=== PATIENT | female | born 1950 | race Caucasian/White ===

== ENCOUNTER → 2017-11-15 | Outpatient (CLI) | payer MEDICARE, BC ==
--- NOTE | 2017-11-18 10:30 | MM ---
Reason for exam: screening (asymptomatic). Last mammogram was performed 1 year and 3 months ago. History: Patient is postmenopausal. Took estrogen for 6 months beginning at age 57. Physical Findings: A clinical breast exam by your physician is recommended on an annual basis and results should be correlated with mammographic findings. MG 3D Screening Mammo W/Cad Bilateral CC and MLO view(s) were taken. Prior study comparison: August 09, 2016, right breast MG work up mamm w CAD RT. August 01, 2016, bilateral MG screening mammo w CAD. There are scattered fibroglandular densities. There is chronic nodularity in the right upper outer quadrant anteriorly. Multiple benign lucent centered calcifications redemonstrated on both sides. No significant changes when compared with prior studies. ASSESSMENT: Benign, BI-RAD 2 RECOMMENDATION: Routine screening mammogram of both breasts in 1 year.
== END | disposition home or self-care (01) ==
LOC: RADMAMWWP 09:26
PROVIDERS: ATTEND Family Medicine
DX: Z12.31 Encounter for screening mammogram for malignant neoplasm of breast (principal)
CPT/HCPCS: 77063; 77067

== ENCOUNTER → 2019-06-17 | Outpatient (CLI) | payer MEDICARE, BC ==
--- NOTE | 2019-06-19 12:27 | MM ---
Reason for exam: screening (asymptomatic). Last mammogram was performed 1 year and 7 months ago. History: Patient is postmenopausal. Took estrogen for 6 months beginning at age 57. Physical Findings: A clinical breast exam by your physician is recommended on an annual basis and results should be correlated with mammographic findings. MG 3D Screening Mammo W/Cad Bilateral CC and MLO view(s) were taken. Prior study comparison: November 15, 2017, bilateral MG 3d screening mammo w/cad. August 09, 2016, right breast MG work up mamm w CAD RT. Diffuse dermal calcifications redemonstrated. No significant changes when compared with prior studies. ASSESSMENT: Benign, BI-RAD 2 RECOMMENDATION: Routine screening mammogram of both breasts in 1 year.
== END | disposition home or self-care (01) ==
LOC: RADMAMWWP 13:11
PROVIDERS: ATTEND Family Medicine
DX: Z12.31 Encounter for screening mammogram for malignant neoplasm of breast (principal)
CPT/HCPCS: 77063; 77067

== ENCOUNTER 2020-02-05 10:25 | Day surgery (SDC) | payer BC, MEDICARE ==
[2020-02-03 10:50] VITALS: BMI 25.1
[~2020-02-05 10:25] MED LIST: LACTATED RINGERS 1,000 ML IV SCH; SODIUM CHLORIDE 0.9% 1,000 ML IV SCH
[2020-02-05 11:15] LABS: African American GFR (CKD) >90 (>60 ml/min/1.73 sqM); Anion Gap 6 mmol/L; Blood Urea Nitrogen 11 mg/dL (7-17); Calcium 9.1 mg/dL (8.4-10.2); Carbon Dioxide 24 mmol/L (22-30); Chloride 110 mmol/L (98-107); Glucose 91 mg/dL (74-99); Non-African American GFR(CKD) >90 (>60 ml/min/1.73 sqM); Potassium 4.5 mmol/L (3.5-5.1); Sodium 140 mmol/L (137-145)
[2020-02-05] MEDS ORDERED: MIDAZOLAM 2 MG/2 ML VIAL IV ONE (11:16)
[2020-02-05] MEDS ORDERED: BENZOCAINE SPRAY 1 CAN TOPICAL PRN (11:16)
[2020-02-05] MEDS ORDERED: fentaNYL (PF) 50 MCG/ML 2 ML AMP IVP ONE (11:16)
[2020-02-05] MEDS ORDERED: PROPOFOL 10 MG/ML 20 ML VIAL IV ONE (11:26)
[2020-02-05] MEDS ORDERED: LIDOCAINE 1% INJ 10MG/ML (20 ML MDV) ONE (11:26)
[2020-02-05] MEDS: BENZOCAINE SPRAY 1 CAN MUCOUS MEM ONE ×2 (11:30→11:34)
[2020-02-05 12:05] VITALS: RESP 16; TEMP 97.2
[2020-02-05] MEDS ORDERED: SODIUM CHLORIDE 0.9% 1,000 ML IV SCH (12:15)
[2020-02-05 13:37] VITALS: BP 168/78; PULSE 70
--- NOTE | 2020-02-11 09:32 | P.TEE ---
Date of Procedure: 02/05/20 Preoperative Diagnosis: Atrial fibrillation Postoperative Diagnosis: The same Procedure(s) Performed: JENNIFER cardioversion Description of Procedure(s): INDICATION: To rule out left atrial clot before cardioversion CONSENT:. Informed verbal consent is obtained from the patient PROCEDURE:. TE followed by cardioversion FINDINGS: Patient was brought to the lab in a fasting state. Patient is prepped and draped in the usual fashion. Department of anesthesia provided anesthesia with ibuprofen for. A lubricated Omni probe was introduced in the oropharynx and were advanced into the esophagus. Multiple views were obtained. Patient tolerated the procedure well. Color, pulsed and continuous wave Dopplers were performed. Saline contrast bubble injection is performed. Patient tolerated the procedure well. The aortic valve is tricuspid. The mitral valve appeared within normal with trace regurgitation. Left atrial appendage free of any clot. No evidence of interatrial septal defect or PFO. Left atrium is enlarged. Left ventricle function appeared to be fair. The aorta showed minimal plaque IMPRESSION:. No clot in the left atrial appendage PLAN: Proceed with cardioversion
--- NOTE | 2020-02-11 09:34 | P.PCN ---
Date of Procedure: 02/05/20 Preoperative Diagnosis: Atrial fibrillation Postoperative Diagnosis: Conversion to sinus rhythm Procedure(s) Performed: Cardioversion Description of Procedure: This patient is evaluated by JENNIFER. There is no clot in left atrial appendage. Anterior posterior paddles were applied. Patient was sedated by department of anesthesia. A single shock of 200 J was applied. Patient converted to sinus rhythm. No immediate complications. Final impression: #1. Successful cardioversion #2 patient will continue current medical therapy and be discharged home. Follow-up in the office in one week
== END 2020-02-05 13:37 | disposition home or self-care (01) ==
LOC: CATHCVL 10:25
PROVIDERS: ATTEND Internal Medicine Cardiovascular Disease
DX: I48.91 Unspecified atrial fibrillation (principal); I08.0 Rheumatic disorders of both mitral and aortic valves; I10 Essential (primary) hypertension; J44.9 Chronic obstructive pulmonary disease, unspecified; E07.9 Disorder of thyroid, unspecified; F17.210 Nicotine dependence, cigarettes, uncomplicated; Z79.82 Long term (current) use of aspirin; Z79.51 Long term (current) use of inhaled steroids; Z79.899 Other long term (current) drug therapy; Z79.890 Hormone replacement therapy; Z79.01 Long term (current) use of anticoagulants; Z79.1 Long term (current) use of non-steroidal anti-inflammatories (NSAID); Z91.048 Other nonmedicinal substance allergy status; Z86.69 Personal history of other diseases of the nervous system and sense organs
CPT/HCPCS: 93312; 93320; 93325; 92960; 80048; J2001; J2704

== ENCOUNTER 2020-11-26 21:03 | Emergency (ER) | payer MEDICARE ==
[2020-11-26 21:12] VITALS: RESP 18
[2020-11-26 21:15] VITALS: TEMP 98
--- NOTE | 2020-11-26 21:32 | ED ---
Fall HPI - General Chief Complaint: Fall Stated Complaint: ETOH, Fall Time Seen by Provider: 11/26/20 21:22 Source: patient, EMS Mode of arrival: EMS - History of Present Illness MD Complaint: fall -: minutes(s) Fall From: standing When Fall Occurred: 1 hour [employer] Fall Witnessed: yes, by family Place Fall Occurred: home Loss of Consciousness: none Prolonged Down Time?: no Location: head Location - Extremities: Right: Forearm Severity scale (1-10): 0 Context: alcohol use Associated Symptoms: denies - Related Data Home Medications Medication Instructions Recorded Confirmed Levothyroxine Sodium [Synthroid] 88 mcg PO QAM 12/14/14 02/05/20 Montelukast [Singulair] 10 mg PO DAILY@199912/14/14 02/03/20 Albuterol Sulfate [Proair Hfa] 2 puff INHALATION BID PRN 03/31/16 02/05/20 Acetaminophen [Tylenol] 325 - 650 mg PO DIRECTED PRN 02/03/20 02/05/20 Cholecalciferol [Vitamin D3 (25 5,000 unit PO DAILY 02/03/20 02/05/20 Mcg = 1000 Iu)] Fluticasone Propion/Salmeterol 1 inhalation PO DAILY PRN 02/03/20 02/05/20 [Wixela 500-50 Inhub] Metoprolol Succinate (ER) [Toprol 50 mg PO DAILY 02/03/20 02/05/20 XL] Rivaroxaban [Xarelto] 20 mg PO HS 02/03/20 02/05/20 Allergies Allergy/AdvReac Type Severity Reaction Status Date / Time Iodinated Contrast Media Allergy Rash/Hives Verified 02/05/20 10:41 [Iodinated Contrast Media - IV Dye] Review of Systems ROS Statement: Those systems with pertinent positive or pertinent negative responses have been documented in the HPI. ROS Other: All systems not noted in ROS Statement are negative. Constitutional: Denies: weakness Eyes: Denies: eye pain, vision change ENT: Denies: ear pain, epistaxis Respiratory: Denies: cough, dyspnea Cardiovascular: Denies: chest pain, palpitations, orthopnea Gastrointestinal: Denies: abdominal pain, vomiting, diarrhea Genitourinary: Denies: dysuria, hematuria Musculoskeletal: Denies: back pain Neurological: Denies: headache, weakness, numbness Past Medical History Past Medical History: Atrial Fibrillation, Asthma, Hypertension, Thyroid Disorder Additional Past Medical History / Comment(s): Seasonal asthma. Hx vertigo. History of Any Multi-Drug Resistant Organisms: None Reported Past Surgical History: Bariatric Surgery, Orthopedic Surgery Additional Past Surgical History / Comment(s): Gastric sleeve 2004, Bakers cyst removed from Rt knee by Dr Reinoso. Rt Knee surg. Rt Shoulder. ORIF Lt Hip. Past Anesthesia/Blood Transfusion Reactions: Previous Problems w/ Anesthesia Additional Past Anesthesia/Blood Transfusion Reaction / Comment(s): Awake during knee surgery. Past Psychological History: No Psychological Hx Reported Smoking Status: Current every day smoker Past Alcohol Use History: Daily Past Drug Use History: None Reported - Past Family History Mother History Unknown: Yes Family Medical History: Unable to Obtain General Exam General appearance: alert, in no apparent distress Head exam: Present: atraumatic, normocephalic Eye exam: Present: normal appearance, PERRL, EOMI. Absent: scleral icterus, conjunctival injection Neck exam: Present: normal inspection, full ROM. Absent: tenderness Respiratory exam: Present: normal lung sounds bilaterally. Absent: respiratory distress, wheezes, rales, rhonchi, stridor Cardiovascular Exam: Present: regular rate, normal rhythm, normal heart sounds. Absent: systolic murmur, diastolic murmur, rubs, gallop GI/Abdominal exam: Present: soft. Absent: distended, tenderness, guarding, rebound, rigid Extremities exam: Present: full ROM. Absent: tenderness Back exam: Present: normal inspection. Absent: vertebral tenderness Neurological exam: Present: alert. Absent: motor sensory deficit Skin exam: Present: warm, dry, normal color. Absent: rash Course Vital Signs 11/26/20 11/26/20 21:05 22:44 Temperature 98.0 F Pulse Rate 113 H 90 Respiratory 18 18 Rate Blood Pressure 169/95 153/84 O2 Sat by Pulse 95 96 Oximetry Disposition Clinical Impression: Fall, Head injury Disposition: HOME SELF-CARE Condition: Fair Instructions (If sedation given, give patient instructions): Contusion in Ad ults (ED) Is patient prescribed a controlled substance at d/c from ED?: No Referrals: Kirby Mejia DO [Primary Care Provider] - 1-2 days
--- NOTE | 2020-11-26 22:13 | CT ---
EXAMINATION TYPE: CT brain loriine karin con DATE OF EXAM: 11/26/2020 COMPARISON: 04/13/2011. HISTORY: Fall. Frontal injury. CT DLP: 1402 mGycm Automated exposure control for dose reduction was used. TECHNIQUE: CT scan of the head and cervical spine are performed without contrast. FINDINGS: There is no acute intracranial hemorrhage, mass effect, or midline shift identified. The ventricles and sulci are within normal limits in size. There is moderate parenchymal volume loss and mild white matter disease. 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 The globes are intact and the vi sualized sinuses are clear. Cervical spine is visualized in its entirety from C1 through upper thoracic levels and demonstrates s atisfactory alignment without evidence of acute fracture or dislocation. Prevertebral soft tissue ap pears within normal limits. The C1-C2 articulation is unremarkable. The patient is visualized lung apices demonstrate moderate hazy opacity with interseptal thickening. There is multilevel mild to mod erate cervical spondylosis. IMPRESSION: 1. There is no acute fracture or dislocation evident in the cervical spine. 2. No acute intracranial hemorrhage, mass effect, or midline shift is seen. 3. Partially imaged upper lobe opacities with interseptal thickening, suggestive of interstitial ondina a. Superimposed infiltrates are not excluded.
[2020-11-26 22:45] VITALS: BP 153/84; PULSE 90
== END 2020-11-26 23:22 | disposition home or self-care (01) ==
LOC: EC 21:03
DX: S09.90XA Unspecified injury of head, initial encounter (principal); I10 Essential (primary) hypertension; F17.200 Nicotine dependence, unspecified, uncomplicated; I48.91 Unspecified atrial fibrillation; Z79.899 Other long term (current) drug therapy; W18.30XA Fall on same level, unspecified, initial encounter; J45.909 Unspecified asthma, uncomplicated
CPT/HCPCS: 70450; 72125; 99284

== ENCOUNTER → 2021-05-23 | Outpatient (CLI) | payer MEDICARE ==
--- NOTE | 2021-05-23 14:05 | CT ---
EXAMINATION TYPE: CT brain wo con DATE OF EXAM: 05/23/2021 COMPARISON: 11/26/2020 INDICATION: Gait abnormality. DLP: 1195 mGycm, Automated exposure control for dose reduction was used. CONTRAST: None CT of the brain is performed utilizing 3 mm thick sections through the posterior fossa and 3 mm thick sections through the remaining calvarium. Study is performed within 24 hours of arrival to the hosp ital. No abnormal hyperdensity is present to suggest an acute intracranial hemorrhage. No mass lesion is evident. No acute infarcts are evident. There is hypodensity within the inferior lateral right frontal lobe ma y be posttraumatic change. This was present previously. Ventricles and sulci are prominent for the patient age. Paranasal sinuses and mastoid air cells within the [id number] are clear. IMPRESSIONS: 1. No acute intracranial process.
== END | disposition home or self-care (01) ==
LOC: RADCTMAIN 13:11
PROVIDERS: ATTEND Family Medicine
DX: R26.89 Other abnormalities of gait and mobility (principal)
CPT/HCPCS: 70450

== ENCOUNTER 2021-07-28 07:17 | Day surgery (SDC) | payer MEDICARE ==
[2021-07-26 11:21] VITALS: BMI 24.7
[~2021-07-28 07:17] MED LIST changes: -SODIUM CHLORIDE 0.9% 1,000 ML IV SCH
[2021-07-28 07:55] VITALS: RESP 16; TEMP 97.7
[2021-07-28] MEDS ORDERED: PROPOFOL 10 MG/ML 20 ML VIAL IV ONE (08:33)
--- NOTE | 2021-07-28 08:49 | P.PCN ---
Date of Procedure: 07/28/21 Procedure(s) Performed: BRIEF HISTORY: Patient is a 71-year-old pleasant white female scheduled for an elective colonoscopy as a part of screening for colorectal neoplasia. PROCEDURE PERFORMED: Colonoscopy with snare polypectomy. PREOPERATIVE DIAGNOSIS: Screening for colon cancer. IV sedation per Anesthesia. PROCEDURE: After informed consent was obtained, the patient, was brought into the endoscopy unit. IV sedation was administered by Anesthesia under continuous monitoring. Digital rectal examination was normal. Initially the Olympus CF-160 flexible video colonoscope was then inserted in the rectum, gradually advanced into the cecum without any difficulty. Careful examination was performed as the scope was gradually being withdrawn. Ileocecal valve and the appendiceal orifice were visualized and appeared normal. Prep was excellent. Mucosa of the cecum, appeared normal. In the ascending colon there was a 7-8 mm sessile polyp removed by snare polypectomy. In the transverse colon there was a 5 mm and 1 cm broad-based polyps removed by snare polypectomy. Rest of the ascending colon, transverse colon, descending colon, sigmoid colon, and rectum appeared normal. Scattered sigmoid diverticulosis seen. Retroflexion was performed in the rectum and no lesions were seen. The patient tolerated the procedure well. IMPRESSION: 7-8 mm sessile ascending colon polyp status post polypectomy 5 mm and 1 cm broad-based transverse colon polyp status post snare polypectomy Scattered sigmoid diverticulosis RECOMMENDATIONS: Findings of this examination were discussed with the patient as well as a family. She was advised to follow with the biopsy results. If the biopsy reveals adenoma she can have a repeat colonoscopy in 3 years.
[2021-07-28 08:55] VITALS: PULSE 88
[2021-07-28 09:11] VITALS: BP 148/71
== END 2021-07-28 09:37 | disposition home or self-care (01) ==
LOC: ORWHC2ENDO 07:17
PROVIDERS: ATTEND Internal Medicine Gastroenterology
DX: Z12.11 Encounter for screening for malignant neoplasm of colon (principal); K57.30 Diverticulosis of large intestine without perforation or abscess without bleeding; I48.91 Unspecified atrial fibrillation; I10 Essential (primary) hypertension; J45.909 Unspecified asthma, uncomplicated; F17.200 Nicotine dependence, unspecified, uncomplicated; M19.90 Unspecified osteoarthritis, unspecified site; Z79.01 Long term (current) use of anticoagulants; Z79.890 Hormone replacement therapy; Z79.899 Other long term (current) drug therapy
CPT/HCPCS: 88305; 45385; J2704

== ENCOUNTER → 2021-09-04 | Outpatient (CLI) | payer MEDICARE ==
--- NOTE | 2021-09-05 05:38 | MR ---
EXAMINATION TYPE: MR cervical spine wo con DATE OF EXAM: 09/04/2021 COMPARISON: None HISTORY: Imbalance, ataxia, hyper reflexia. Multiplanar multiecho imaging of the cervical spine without contrast. FINDINGS: The cervical vertebra have normal alignment. There is degenerative disc space narrowing throughout th e cervical spine. There is no compression fracture. There is mild posterior disc bulging from C3 to C 6. At C5-6 there is more noticeable bulging. There is some facet arthropathy. The spinal canal is arian rowed to 6 mm at C5-6. The cervical spinal cord shows no edema. The brainstem appears intact. Cerebel lum appears intact. I see no focal bone destruction. IMPRESSION: Multilevel spondylotic changes. C5-6 spinal stenosis. No fracture.
== END | disposition home or self-care (01) ==
LOC: RADMRIMAIN 19:28
PROVIDERS: ATTEND Psychiatry & Neurology Neurology
DX: M48.02 Spinal stenosis, cervical region (principal); M47.812 Spondylosis without myelopathy or radiculopathy, cervical region
CPT/HCPCS: 72141

== ENCOUNTER → 2021-09-20 | Outpatient (CLI) | payer MEDICARE ==
--- NOTE | 2021-09-22 08:13 | MM ---
Reason for exam: screening (asymptomatic). Last mammogram was performed 2 years and 3 months ago. History: Patient is postmenopausal. Took estrogen for 6 months beginning at age 57. Physical Findings: A clinical breast exam by your physician is recommended on an annual basis and results should be correlated with mammographic findings. MG 3D Screening Mammo W/Cad Bilateral CC and MLO view(s) were taken. Prior study comparison: June 17, 2019, bilateral MG 3d screening mammo w/cad. November 15, 2017, bilateral MG 3d screening mammo w/cad. There are scattered fibroglandular densities. Diffuse benign round and punctate calcifications. Lateral left subareolar nodularity is more defined. ASSESSMENT: Incomplete: need additional imaging evaluation, BI-RAD 0 RECOMMENDATION: Special view mammogram of the left breast. (3D) If lesion persists on supplemental views, image directed ultrasound is recommended. [facility] will attempt to contact patient to return for supplemental views and ultrasound if indicated.
== END | disposition home or self-care (01) ==
LOC: RADMAMWWP 13:02
PROVIDERS: ATTEND Family Medicine
DX: Z12.31 Encounter for screening mammogram for malignant neoplasm of breast (principal); Z78.0 Asymptomatic menopausal state
CPT/HCPCS: 77063; 77067

== ENCOUNTER → 2021-09-27 | Outpatient (CLI) | payer MEDICARE ==
--- NOTE | 2021-09-28 08:35 | MM ---
Reason for exam: additional evaluation requested from abnormal screening. Last mammogram was performed less than 1 month ago. History: Patient is postmenopausal. Took estrogen for 6 months beginning at age 57. Physical Findings: Nurse did not find any significant physical abnormalities on exam. MG 3D Work Up W/Cad LT Spot compression CC, spot compression MLO, and LM view(s) were taken of the left breast. Prior study comparison: September 20, 2021, bilateral MG 3d screening mammo w/cad. June 17, 2019, bilateral MG 3d screening mammo w/cad. The breast tissue is heterogeneously dense. This may lower the sensitivity of mammography. There is no discrete abnormality including area of concern. No significant new findings when compared with previous films. These results were verbally communicated with the patient and result sheet given to the patient on 09/27/21. ASSESSMENT: Negative, BI-RAD 1 RECOMMENDATION: Return to routine screening mammogram schedule for both breasts.
== END | disposition home or self-care (01) ==
LOC: RADMAMWWP 14:52
PROVIDERS: ATTEND Family Medicine
DX: R92.8 Other abnormal and inconclusive findings on diagnostic imaging of breast (principal); Z78.0 Asymptomatic menopausal state
CPT/HCPCS: 77065; G0279; 77061

== ENCOUNTER → 2021-10-04 | Outpatient (CLI) | payer MEDICARE ==
--- NOTE | 2021-10-04 17:09 | XR ---
EXAMINATION TYPE: XR chest 2V DATE OF EXAM: 10/04/2021 COMPARISON: 03/31/2016 HISTORY: Hip fracture TECHNIQUE: 2 views FINDINGS: Heart is normal. Lungs are clear of consolidation. There are no hilar masses. Costophrenic angles are clear. Bony thorax is intact. IMPRESSION: No active cardiopulmonary disease. No change.
== END | disposition home or self-care (01) ==
LOC: RADXRMAIN 16:38
PROVIDERS: ATTEND Orthopaedic Surgery Orthopaedic Surgery of the Spine
DX: Z01.818 Encounter for other preprocedural examination (principal)
CPT/HCPCS: 71046

== ENCOUNTER 2021-10-18 06:48 | Day surgery (SDC) | payer MEDICARE ==
[2021-10-17 10:36] VITALS: BMI 25.1
[~2021-10-18 06:48] MED LIST changes: +DEXAMETHASONE SOD PHOSPHATE 4 MG/ML 1 ML VIAL IV ONE; +HYDROmorphone 0.5 MG/0.5 ML SYRINGE IVP PRN; +ONDANSETRON 4 MG/2 ML VIAL IVP ONE; +ceFAZolin 1,000 MG in SODIUM CHLORIDE 0.9% IRRIGATIO 1,000 ML IRRIGATION PRN
[2021-10-18 07:20] VITALS: RESP 16
[2021-10-18] MEDS ORDERED: VASOPRESSIN 20 UNIT/ML 1 ML VIAL ONE (08:00)
[2021-10-18] MEDS ORDERED: ROCURONIUM 10 MG/ML (5 ML VIAL) IV ONE (08:00)
[2021-10-18] MEDS ORDERED: MIDAZOLAM 2 MG/2 ML VIAL ONE (08:00)
[2021-10-18] MEDS ORDERED: NEOSTIGMINE 1 MG/ML 10 ML VIAL ONE (08:00)
[2021-10-18] MEDS ORDERED: PHENYLEPHRINE-0.9% NACL SYG 1,000 MCG/10 ML SYRINGE ONE (08:00)
[2021-10-18] MEDS ORDERED: PROPOFOL 10 MG/ML 20 ML VIAL IV ONE (08:00)
[2021-10-18] MEDS ORDERED: fentaNYL (PF) 50 MCG/ML 2 ML AMP ONE (08:00)
[2021-10-18] MEDS ORDERED: SUCCINYLCHOLINE CHLORIDE 100 MG/5 ML SYR IV ONE (08:00)
[2021-10-18] MEDS ORDERED: GLYCOPYRROLATE 0.2 MG/ML 2 ML VIAL ONE (08:00)
[2021-10-18] MEDS ORDERED: LIDOCAINE 1% INJ 10MG/ML (20 ML MDV) ONE (08:00)
[2021-10-18] MEDS ORDERED: THROMBIN (BOVINE) 5,000 UNIT VIAL TOPICAL ONE (08:28)
[2021-10-18] MEDS ORDERED: GELATIN SPONGE,ABSORB (SMALL) 1 EACH SPONGE TOPICAL ONE (08:29)
[2021-10-18] MEDS ORDERED: BUPIVACAIN-EPI 0.25%-1:200,000 30 ML VIAL SQ ONE ×2 (08:30→08:34)
[2021-10-18] MEDS ORDERED: LACTATED RINGERS 1,000 ML IV ONE (09:00)
--- NOTE | 2021-10-18 09:11 | XR ---
EXAMINATION TYPE: XR cervical spine 1V DATE OF EXAM: 10/18/2021 COMPARISON: NONE HISTORY: ANTERIOR CERVICAL FUSION/DISKECTOMY TECHNIQUE: Crosstable lateral view cervical spine FINDINGS: Localization device at the anterior C5-6 level. IMPRESSION: As above
[2021-10-18] MEDS ORDERED: CYCLOBENZAPRINE 5 MG TAB PO PRN (09:37)
[2021-10-18] MEDS ORDERED: ONDANSETRON 4 MG/2 ML VIAL IVP PRN (09:37)
[2021-10-18] MEDS ORDERED: BENZOCAINE/MENTHOL LOZENG 1 EACH LOZENGE MUCOUS MEM PRN (09:37)
[2021-10-18] MEDS ORDERED: HYDROcodone/APAP 5-325MG 1 EACH TAB PO PRN (09:37)
[2021-10-18] MEDS ORDERED: HYDROmorphone 1 MG/ML 1 ML SYRINGE IVP PRN (09:37)
[2021-10-18] MEDS ORDERED: NON FORMULARY DRUG (Fluticasone Propion/Salmeterol [Wixela 500-50 Inhub] 1 EACH Blst.W.Dev PO PRN (09:40)
[2021-10-18] MEDS ORDERED: NON FORMULARY DRUG (Acetaminophen [Tylenol] 325 MG Capsule) PO PRN (09:40)
[2021-10-18] MEDS ORDERED: ALBUTEROL HFA INHALER INHALATION PRN (09:40)
[2021-10-18] MEDS ORDERED: SODIUM CHLORIDE 0.9% 1,000 ML IV SCH (09:45)
--- NOTE | 2021-10-18 09:45 | P.OP ---
Date of Procedure: 10/18/21 Preoperative Diagnosis: Cervical myelopathy, severe cervical stenosis C5 6, herniated nucleus pulposis C5 6, upper extremity radiculopathy, upper tremor weakness Postoperative Diagnosis: Same Anesthesia: GETA Pathology: none sent Condition: stable Disposition: PACU Description of Procedure: BRIEF OPERATIVE NOTE Preoperative Diagnosis:Cervical myelopathy, severe cervical stenosis C5 6, herniated nucleus pulposis C5 6, upper extremity radiculopathy, upper tremor weakness Postoperative Diagnosis:Cervical myelopathy, severe cervical stenosis C5 6, herniated nucleus pulposis C5 6, upper extremity radiculopathy, upper tremor weakness Procedure: Anterior cervical decompression with discectomy and fusion C5 6 Placement of interbody graft C5 6 Application of anterior cervical plate C5 6 Surgeon: Dr. Carty Electric Meter Tester Helper: Umberto Montes is present throughout the entire the case persistence during positioning, dissection, exposure, visualization, and all crucial elements of the case as well as closure. Anesthesia: General anesthesia Estimated blood loss: Approximately 50 mL Complications: None apparent Components implanted: K2M [place] anterior cervical plate system with the VIkosinterbody allograft bone graft Disposition: To recovery room in good stable condition. OPERATIVE INDICATIONS The patient has had long-standing issues in their neck and upper extremities. She isn't having worsening troubles in her upper extremity is with dexterity in her balance. The patient has been through conservative treatment. She is found have severe stenosis C5 6 with disc herniation which equated with her early myelopathy signs and her neuropathy neck pain. We discussed various treatment options including surgery, and the patient wishes to proceed with surgery We discussed the risk, patient's alternatives and benefits of surgery including but not limited to, risk of bleeding risk of infection, risk of need for further surgery, risk of decreased, loss of motion, muscle function, malunion nonunion, hardware failure, nerve damage, paralysis, heart attack, and . OPERATIVE SUMMARY After discussing all the risks, patient alternatives and benefits at length, the patient elected to proceed with surgical intervention, signed informed consent, and presented for their procedure. The patient was seen and examined in the preoperative holding area and the surgical site was marked. The patient was given antibiotics and brought to the operating room. The patient was positioned on the operating room table in a supine position being careful to pad any bony prominences and pressure points. The patient was sedated and intubated by anesthesia in standard fashion. Once the airway and C- spine were stabilized the patient's arms were padded and tucked at her side, with her shoulders gently taped. The head was placed in a donut pad with the neck in good neutral alignment and position. We were careful to maintain the patient's cervical spine and good neutral alignment and position throughout. The patient was prepped and draped in a normal standard fashion. An appropriate timeout and keystone protocol performed. We were able to proceed with the surgery. The local wound area was infiltrated with local anesthetic. An incision was made transversely approximately 2-1/2 cm over the appropriate levels at C5 6. Dissection was taken down subcutaneously to the level of the platysma which was split in line with its fibers. Dissection was taken with a carotid approach, with the trachea and esophagus medial and the carotid sheath laterally. We dissected down to the anterior surface of the vertebral bodies. Intraoperative x-ray was taken which showed a marker at the appropriate level. With the appropriate level positively confirmed, we were able to proceed with discectomy at the appropriate levels of C5 6. All of the operative levels were exposed appropriately. The patient had all their twitches back, and there was no evidence of recurrent laryngeal issue. The wound was copiously irrigated and suctioned dry as had been done periodically throughout the case. At the appropriate level of C5 6, I established an annulotomy with an 11 blade scalpel. A discectomy was performed with a combination of pituitary rongeurs, curettes, a high-speed bur, and Kerrison rongeurs. The posterior longitudinal ligament was taken down as were any posterior osteophytes. This gave good central and bilateral foraminal decompression. There is no evidence of any dural tear or leak. The endplates were prepared with a high-speed bur. With the endplates in good parallel position, I was able to size for the appropriate size interbody graft. The wound was irrigated and suctioned dry the graft was prepared and malleted into position. It had good alignment and position with the anterior surface flush with the anterior surface of the vertebral bodies. With the grafts intact, I was able to measure and contour and appropriate sized plate. The plate was positioned at the midline over the appropriate levels of C5 6. Screw holes were established with a hand drill and drill guide. Screws were placed in good alignment and position with excellent bony purchase. They were seated under the locking device. The construct was checked and found to be stable. Intraoperative x-ray was taken which showed good alignment and position of the implants at the appropriate levels. There was no evidence of any dural tear or leak. Good hemostasis was maintained. The wound was copiously irrigated and suctioned dry as had been done periodically throughout the case. The platysma was closed with absorbable suture. The subcutaneous tissue was closed. The subcuticular tissue was closed with absorbable suture. The wound was cleaned and dried and dressed appropriately. A soft cervical collar was placed appropriately. The patient was woken up by anesthesia, extubated, transferred back gently to their hospital bed and brought to the recovery room in good stable condition. The patient will be admitted to the hospital for appropriate postoperative care, medical management and monitoring. We will continue to follow them closely about the postoperative course.
[2021-10-18 09:50] VITALS: TEMP 98.6
--- NOTE | 2021-10-18 09:50 | XR ---
EXAMINATION TYPE: XR cervical spine 1V DATE OF EXAM: 10/18/2021 COMPARISON: NONE HISTORY: Hardware Placement TECHNIQUE: Crosstable lateral cervical spine FINDINGS: C5-6 anterior cervical discectomy and fusion. Anterior fixation plate is in place. Interver tebral body spacer is well seated. IMPRESSION: As above
[2021-10-18 11:31] VITALS: BP 136/68; PULSE 84
[2021-10-18] MEDS ORDERED: MONTELUKAST 10 MG TAB PO SCH (20:00)
[2021-10-18] MEDS ORDERED: METOPROLOL SUCCINATE (ER) 25 MG TAB.ER.24H PO SCH ×2 (21:00)
[2021-10-19] MEDS ORDERED: NON FORMULARY DRUG (Cholecalciferol 1,000 UNIT Tab) PO SCH ×2 (09:00)
[2021-10-19] MEDS ORDERED: FUROSEMIDE 20 MG TAB PO SCH ×2 (09:00)
[2021-10-19] MEDS ORDERED: METOPROLOL SUCCINATE (ER) 25 MG TAB.ER.24H PO SCH ×2 (09:00)
[2021-10-19] MEDS ORDERED: SENNOSIDES-DOCUSATE SODIUM 1 EACH TAB PO SCH ×2 (09:00)
[2021-10-19] MEDS ORDERED: LEVOTHYROXINE 88 MCG TAB PO SCH ×2 (09:00)
[2021-10-19] MEDS ORDERED: RIVAROXABAN 20 MG TAB PO SCH ×2 (21:00)
== END 2021-10-18 12:16 | disposition home or self-care (01) ==
LOC: UNDOADMIN 06:48 → 2ORMAIN 06:48 → OR 06:48 → EDSTATUS 08:00 → OR 12:16 → UNDODISIN 12:16
PROVIDERS: ATTEND Orthopaedic Surgery Orthopaedic Surgery of the Spine
DX: M48.02 Spinal stenosis, cervical region (principal); M47.12 Other spondylosis with myelopathy, cervical region; M50.022 Cervical disc disorder at C5-C6 level with myelopathy; M50.122 Cervical disc disorder at C5-C6 level with radiculopathy; I48.20 Chronic atrial fibrillation, unspecified; J44.9 Chronic obstructive pulmonary disease, unspecified; G62.9 Polyneuropathy, unspecified; I10 Essential (primary) hypertension; E78.5 Hyperlipidemia, unspecified; D64.9 Anemia, unspecified; I48.91 Unspecified atrial fibrillation; J45.909 Unspecified asthma, uncomplicated; E07.9 Disorder of thyroid, unspecified; N28.9 Disorder of kidney and ureter, unspecified; Z88.8 Allergy status to other drugs, medicaments and biological substances; Z79.890 Hormone replacement therapy; Z79.899 Other long term (current) drug therapy; Z91.041 Radiographic dye allergy status
CPT/HCPCS: 22551; 20931; 72020; C1713; C1762; J2250; J2710; J0690 ×2; J2405; J2001; J3010; J2370; J0330; J2704

== ENCOUNTER 2023-02-25 22:51 | Emergency (ER) | payer MEDICARE ==
[2023-02-25 22:56] VITALS: RESP 16; TEMP 97.7
[2023-02-25] MEDS ORDERED: SODIUM CHLORIDE 0.9% 500 ML 500 ML IV STA (23:00)
[2023-02-25] MEDS ORDERED: MORPHINE SULFATE 2 MG/ML SYRINGE IVP STA (23:01)
[2023-02-25 23:19] LABS: Basophils % (A) 0 %; Eosinophils # (A) 0.1 k/uL (0-0.7); Eosinophils % (A) 1 %; HCT 40.9 % (34.0-46.0); HGB 13.5 gm/dL (11.4-16.0); Lymphocytes # (A) 2.9 k/uL (1.0-4.8); Lymphocytes % (A) 34 %; MCH 35.7 pg (25.0-35.0); MCHC 33.2 g/dL (31.0-37.0); MCV 107.6 fL (80.0-100.0); Macrocytosis Moderate; Mean Platelet Volume 8.4; Monocytes # (A) 0.5 k/uL (0-1.0); Monocytes % (A) 7 %; Neutrophils # (A) 4.7 k/uL (1.3-7.7); Neutrophils % (A) 56 %; Platelet Count 171 k/uL (150-450); RDW 12.1 % (11.5-15.5); WBC 8.3 k/uL (3.8-10.6)
--- NOTE | 2023-02-25 23:22 | XR ---
EXAM: XR Right Elbow Complete, 3 or More Views CLINICAL HISTORY: ITS.REASON XR Reason: pain TECHNIQUE: Frontal, lateral and oblique views of the right elbow. COMPARISON: No relevant prior studies available. FINDINGS: Bones/joints: No acute fracture or malalignment. No joint effusion. Soft tissues: Unremarkable. IMPRESSION: No acute fracture or malalignment.
--- NOTE | 2023-02-25 23:23 | XR ---
EXAM: XR Chest, 1 View CLINICAL HISTORY: ITS.REASON XR Reason: trauma TECHNIQUE: Frontal view of the chest. COMPARISON: No relevant prior studies available. FINDINGS: Lungs: Chronic appearing interstitial changes in the lungs. No consolidation. No edema. Pleural space: No pleural effusion. No pneumothorax. Heart: Unremarkable. No cardiomegaly. Bones/joints: No radiographically evident fracture. IMPRESSION: No acute findings in the chest.
--- NOTE | 2023-02-25 23:26 | XR ---
EXAM: XR Pelvis, 1 or 2 Views CLINICAL HISTORY: ITS.REASON XR Reason: Trauma TECHNIQUE: Frontal view of the pelvis. COMPARISON: No relevant prior studies available. FINDINGS: Bones/joints: No acute fracture. Chronic fracture deformity of the left hip status post ORIF. No hardware complication. Degenerative changes in the lumbar spine and hips. Osteopenia. IMPRESSION: No acute fracture.
[2023-02-25 23:31] LABS: ALT 25 U/L (4-34); AST 43 U/L (14-36); African American GFR (CKD) >90 (>60 ml/min/1.73 sqM); Albumin 4.1 g/dL (3.5-5.0); Alkaline Phosphatase 89 U/L (38-126); Anion Gap 13 mmol/L; Blood Urea Nitrogen 12 mg/dL (7-17); Calcium 8.8 mg/dL (8.4-10.2); Carbon Dioxide 20 mmol/L (22-30); Chloride 100 mmol/L (98-107); Glucose 94 mg/dL (74-99); Non-African American GFR(CKD) >90 (>60 ml/min/1.73 sqM); Potassium 4.2 mmol/L (3.5-5.1); Sodium 133 mmol/L (137-145); Total Bilirubin 0.5 mg/dL (0.2-1.3); Total Protein 7.5 g/dL (6.3-8.2)
[2023-02-25 23:42] LABS: Alcohol 314 mg/dL
[2023-02-25 23:47] LABS: Glucose,Whole Blood 96 mg/dL (70-110)
--- NOTE | 2023-02-25 23:50 | CT ---
EXAM: CT Maxillofacial Without Intravenous Contrast CLINICAL HISTORY: ITS.REASON CT Reason: trauma TECHNIQUE: Axial computed tomography images of the face without intravenous contrast. CTDI is 12.4 mGy and DLP is 367.4 mGy-cm. This CT exam was performed using one or more of the following dose reduction techniques: automated exposure control, adjustment of the mA and/or kV according to patient size, and/or use of iterative reconstruction technique. COMPARISON: No relevant prior studies available. FINDINGS: Bones/joints: No facial fracture. Soft tissues: Unremarkable. Orbits: Unremarkable. Sinuses: Unremarkable. IMPRESSION: No facial fracture.
[2023-02-25 23:52] LABS: INR 0.9 (<1.2); Partial Thromboplastin Time 22.1 sec (22.0-30.0); Prothrombin Time 9.9 sec (9.0-12.0)
--- NOTE | 2023-02-25 23:52 | CT ---
EXAM: CT Head Without Intravenous Contrast CLINICAL HISTORY: ITS.REASON CT Reason: trauma TECHNIQUE: Axial computed tomography images of the head/brain without intravenous contrast. CTDI is 25.8 mGy and DLP is 758.3 mGy-cm. This CT exam was performed using one or more of the following dose reduction techniques: automated exposure control, adjustment of the mA and/or kV according to patient size, and/or use of iterative reconstruction technique. COMPARISON: No relevant prior studies available. FINDINGS: Brain: No intracranial hemorrhage. Chronic infarct in the right frontal lobe. Ventricles: Unremarkable. Bones/joints: Unremarkable. No fracture. Soft tissues: Superior scalp hematoma. Sinuses: No acute sinusitis. Mastoid air cells: Unremarkable as visualized. IMPRESSION: 1. No acute intracranial abnormality. 2. Superior scalp hematoma. EXAM: CT Cervical Spine Without Intravenous Contrast CLINICAL HISTORY: ITS.REASON CT Reason: trauma TECHNIQUE: Axial computed tomography images of the cervical spine without intravenous contrast. CTDI is 12.4 mGy and DLP is 367.4 mGy-cm. This CT exam was performed using one or more of the following dose reduction techniques: automated exposure control, adjustment of the mA and/or kV according to patient size, and/or use of iterative reconstruction technique. COMPARISON: No relevant prior studies available. FINDINGS: Vertebrae: No acute fracture. Status post C5-6 ACDF. Intact hardware. Moderate degenerative changes within the cervical spine. Soft tissues: Unremarkable. IMPRESSION: No acute fracture.
[2023-02-26 02:25] LABS: Amphetamine Screen,Urine Not Detected (NotDetected); Barbiturate Screen,Urine Not Detected (NotDetected); Benzodiazepines Screen,Urine Not Detected (NotDetected); Cocaine Screen,Urine Not Detected (NotDetected); Methadone Screen, Urine Not Detected (NotDetected); Opiate Screen,Urine Detected (NotDetected); Oxycodone Screen, Urine Not Detected (NotDetected); Phencyclidine Screen,Urine Not Detected (NotDetected); Tricyclic Antidepressant,Urine Not Detected (NotDetected); Urn Cannabinoid Scrn Not Detected (NotDetected)
--- NOTE | 2023-02-26 02:28 | XR ---
EXAM: XR Right Tibia and Fibula, 2 Views CLINICAL HISTORY: ITS.REASON XR Reason: fall, pain TECHNIQUE: Frontal and lateral views of the right tibia and fibula. COMPARISON: No relevant prior studies available. FINDINGS: Bones/joints: No acute fracture or malalignment. Bones are osteopenic. Degenerative changes at the knee. Patellar enthesophytes. Soft tissues: Unremarkable. No radiopaque foreign body. Vasculature: Atherosclerotic calcifications. IMPRESSION: No acute fracture or malalignment.
--- NOTE | 2023-02-26 02:39 | ED ---
General Adult HPI <ClaudioandreaPriscilla - Last Filed: 02/26/23 02:51> - General Source: patient, RN notes reviewed, old records reviewed Mode of arrival: EMS <Mendez Pike - Last Filed: 02/26/23 06:34> - General Chief complaint: Fall Stated complaint: Fall,Blood Thinners Time Seen by Provider: 02/25/23 22:57 - History of Present Illness Initial comments: Patient is a 72-year-old female presents emergency Department with a fall on blood thinners. Patient is a level II trauma activation. Patient was taking wine this evening and states she had 5 glasses. She was walking on the stairs when she fell and slipped hitting her head she thinks either on the top stair on the wall and then sliding down the remaining status. Her only complaints are a laceration to the top of her head as well as some mild right elbow discomfort with a laceration. States she is up-to-date on her tetanus within the last 3 years. Denies loss of consciousness. States she is on a blood thinner. Denies any chest pain or shortness of breath. Denies any hip pain. His no other acute complaints at this time. Presents for further evaluation. (Mendez Pike) - Related Data Home Medications Medication Instructions Recorded Confirmed Levothyroxine Sodium [Synthroid] 88 mcg PO QAM 12/14/14 11/14/21 Montelukast [Singulair] 10 mg PO DAILY@199912/14/14 11/14/21 Albuterol Sulfate [Proair Hfa] 2 puff INHALATION BID PRN 03/31/16 11/14/21 Acetaminophen [Tylenol] 325 - 650 mg PO Q6H PRN 02/03/20 11/14/21 Cholecalciferol [Vitamin D3 (25 5,000 unit PO DAILY 02/03/20 11/14/21 Mcg = 1000 Iu)] Fluticasone Propion/Salmeterol 1 inhalation PO DAILY PRN 02/03/20 11/14/21 [Wixela 500-50 Inhub] Metoprolol Succinate (ER) [Toprol 50 mg PO DAILY 02/03/20 11/14/21 XL] Rivaroxaban [Xarelto] 20 mg PO HS 02/03/20 11/14/21 Metoprolol Succinate [Toprol XL] 25 mg PO HS 07/26/21 11/14/21 lisinopriL [Zestril] 2.5 mg PO DAILY 07/26/21 11/14/21 Furosemide [Lasix] 20 mg PO DAILY 10/17/21 11/14/21 Previous Rx's Medication Instructions Recorded HYDROcodone/APAP 5-325MG [Bellona 5] 1 each PO Q6HR PRN #28 tab 10/18/21 Allergies Allergy/AdvReac Type Severity Reaction Status Date / Time Iodinated Contrast Media Allergy Rash/Hives Verified 02/25/23 22:56 [Iodinated Contrast Media - IV Dye] Review of Systems ROS Other: All systems not noted in ROS Statement are negative. <Priscilla Thompson - Last Filed: 02/26/23 02:51> ROS Other: All systems not noted in ROS Statement are negative. <Mendez Pike - Last Filed: 02/26/23 06:34> ROS Statement: Those systems with pertinent positive or pertinent negative responses have been documented in the HPI. Review of Systems: CONST: Denies fever EYES: Denies blurry vision ENT: Denies nasal congestion C/V: Denies Chest pain RESP: Denies shortness of breath GI: Denies abdominal pain : Denies dysuria SKIN: Endorses laceration MSK: Endorses joint pain NEURO: Denies headache (Mendez Pike) Past Medical History Past Medical History: Atrial Fibrillation, Asthma, Hypertension, Thyroid Disorder Additional Past Medical History / Comment(s): Seasonal asthma. Hx vertigo. History of Any Multi-Drug Resistant Organisms: None Reported Past Surgical History: Bariatric Surgery, Orthopedic Surgery Additional Past Surgical History / Comment(s): Gastric sleeve 2004, Bakers cyst removed from Rt knee by Dr Reinoso. Rt Knee surg. Rt Shoulder. ORIF Lt Hip. Past Anesthesia/Blood Transfusion Reactions: Previous Problems w/ Anesthesia Additional Past Anesthesia/Blood Transfusion Reaction / Comment(s): Awake during knee surgery. Past Psychological History: No Psychological Hx Reported Smoking Status: Current every day smoker Past Alcohol Use History: Heavy Past Drug Use History: None Reported - Past Family History Father Family Medical History: Deep Vein Thrombosis (DVT) Additional Family Medical History / Comment(s): DVT IN LEG Mother History Unknown: Yes Family Medical History: No Reported History <Mendez Pike - Last Filed: 02/26/23 06:34> General Exam <Mendez iPke - Last Filed: 02/26/23 06:34> - General Exam Comments Initial Comments: General: Appears in no acute distress. HEAD: Negative Henderson sign. Negative raccoon eyes. Patient does have a large stellate type laceration/avulsion on the superior scalp as well as a small laceration over the left forehead. Both are oozing blood at this time. EYES: PERRLA, EOMI, conjunctiva normal, no discharge. Pupils are 3 mm equal bilaterally. ENT: Hearing grossly intact, normal oropharynx. RESPIRATORY: Clear breath sounds bilaterally. No wheezes, rales, or rhonchi. C/V: Regular rate and rhythm. S1 and S2 auscultated, peripheral pulses 2+ and intact throughout ABD: Abd is soft, nontender, nondistended EXT: Normal range of motion, no obvious deformity. Tenderness to palpation over the right elbow. Pelvis is stable. No midline cervical, thoracic, lumbar spine tenderness to palpation. No spinal step-offs or deformities appreciated. SKIN: Patient has a stellate laceration to the superior scalp as well as a linear laceration located over the left forehead. Patient also has bruising over the right anterior tib-fib. Patient has an abrasion over the right elbow. NEURO: Alert and oriented x 4. Cranial nerves II-XII intact. No focal sensory or strength deficits. GCS of 15. NIH is 0. (Mendez Pike) Course Vital Signs 02/25/23 02/26/23 22:53 02:41 Temperature 97.7 F Pulse Rate 116 H 99 Respiratory 16 16 Rate Blood Pressure 111/62 O2 Sat by Pulse 97 99 Oximetry Procedures - Laceration Laceration #1 Consent Obtained: verbal consent Indication: laceration Site: face Size (cm): 1 Description: linear Depth: simple, single layer Anesthetic Used: lidocaine 1% Anesthesia Technique: local infiltration Amount (mls): 10 Pre-repair: wound explored, irrigated extensively Type of Sutures: vicryl Size of Sutures: 6-0 (2) Number of Sutures: 2 Technique: simple, interrupted Complications: pain, bleeding, nerve injury Patient Tolerated Procedure: well, no complications Laceration #2 Consent Obtained: verbal consent Indication: laceration Site: scalp Size (cm): 4 (4.5cm x 4.5cm V shaped laceration to frontal region of scalp) Depth: simple, single layer Pre-repair: wound explored, irrigated extensively Technique: other ([place]) Complications: pain, bleeding, nerve injury Patient Tolerated Procedure: well, no complications <Priscilla Thompson - Last Filed: 02/26/23 02:51> - Laceration Laceration #1 Additional Comments: Patient tolerated well no complications (Priscilla Thompson) Laceration #2 Additional Comments: 21 judith placed. patient tolerated well. (Priscilla Thompson) Medical Decision Making - Lab Data Result diagrams: 02/25/23 23:05 02/25/23 23:05 <Priscilla Thompson - Last Filed: 02/26/23 02:51> - Lab Data Result diagrams: 02/25/23 23:05 02/25/23 23:05 - EKG Data -: EKG Interpreted by Me <Mendez Pike - Last Filed: 02/26/23 06:34> - Medical Decision Making Was pt. sent in by a medical professional or institution (, PA, SITECORE DEVELOPER, urgent care, hospital, or senior living...) When possible be specific @ -No Did you speak to anyone other than the patient for history (EMS, parent, family, police, friend...)? What history was obtained from this source @ -No Did you review nursing and triage notes (agree or disagree)? Why? @ -I reviewed and agree with nursing and triage notes Were old charts reviewed (outside hosp., previous admission, EMS record, old EKG, old radiological studies, urgent care reports/EKG's, senior living records)? Report findings @ -No old charts were reviewed Differential Diagnosis (chest pain, altered mental status, abdominal pain women, abdominal pain men, vaginal bleeding, weakness, fever, dyspnea, syncope, headache, dizziness, GI bleed, back pain, seizure, CVA, palpatations, mental health, musculoskeletal)? @ -Intracranial injury, abrasion, laceration, fall, alcohol intoxication, bony traumatic injury, this list is not all inclusive. EKG interpreted by me (3pts min.). @ -As above X-rays interpreted by me (1pt min.). @ -X-rays of the elbow, chest, pelvis, right tib-fib all negative for any obvious acute traumatic injuries. CT interpreted by me (1pt min.). @ -CT brain, C-spine revealed no evidence of acute intracranial injury, bleed, process. CT face reveals no obvious facial fracture. U/S interpreted by me (1pt. min.). @ -None done What testing was considered but not performed or refused? (CT, X-rays, U/S, labs)? Why? @ -None What meds were considered but not given or refused? Why? @ -None Did you discuss the management of the patient with other professionals (professionals i.e. , PA, SITECORE DEVELOPER, lab, RT, psych nurse, social and political studies professor, admiralty lawyer, teacher, giving officer, caseworker protective services)? Give summary @ -Briseida of trauma returned call, will receive updates as necessary. Was smoking cessation discussed for >3mins.? @ -No Was critical care preformed (if so, how long)? @ -Yes, 36 minutes. Were there social determinants of health that impacted care today? How? (Homelessness, low income, unemployed, alcoholism, drug addiction, transpor tation, low edu. Level, literacy, decrease access to med. care, fci, rehab)? @ -No Was there de-escalation of care discussed even if they declined (Discuss DNR or withdrawal of care, Hospice)? DNR status @ -No What co-morbidities impacted this encounter? (DM, HTN, Smoking, COPD, CAD, Cancer, CVA, ARF, Chemo, Hep., AIDS, mental health diagnosis, sleep apnea, morbid obesity)? @ -Atrial fibrillation on blood thinners Was patient admitted / discharged? Hospital course, mention meds given and route, prescriptions, significant lab abnormalities, going to OR and other pertinent info. @ -Based on the patient's presentation and physical exam, she presents with a fall on thinners over ground level. Therefore patient does meet criteria for level II trauma activation. ATLS protocol was followed. Dr. Goins the on- call trauma surgeon was contacted and notified. He will be notified of any updates. Trauma labs will be obtained. CT of the head, C-spine as well as x- rays of the right elbow, right tib-fib, chest and pelvis will be obtained. She was in agreement this plan. She is up-to-date on tetanus. She will be given morphine for analgesia, as well as fluid bolus. I also within acceptable limits. Patient's imaging is unremarkable. No obvious injuries, other than the lacerations over the forehead, scalp as well as the abrasions on her extremiti es. Labs are within acceptable limits. Patient's alcohol level is elevated to 314. I did the patient. Assisting mid-level provider did close the patient's lacerations. Patient tolerated the procedure well. See additional note for further details. She requires with both judith and sutures. At this time, I believe it is safe for the patient be discharged home and she was in agreement this plan. Strict return precautions were discussed. Patient's family members are present at bedside and can. The patient home. Recommended close follow-up with PCP this week. Strict return precautions discussed. I instructed the patient to follow up with their PCP in the next 1-3 days. I explained that the patient should return to the emergency department if they experience any worsening symptoms. Strict return precautions were discussed with the patient. The patient expressed understanding of these instructions. I answered all questions that the patient had. The patient was discharged home in good condition with their prescriptions and follow up information. Undiagnosed new problem with uncertain prognosis? @ -No Drug Therapy requiring intensive monitoring for toxicity (Heparin, Nitro, Insulin, Cardizem)? @ -No Were any procedures done? @ -No Diagnosis/symptom? @ -Alcohol intoxication, fall, scalp laceration requiring judith, forehead laceration requiring sutures Acute, or Chronic, or Acute on Chronic? @ -Acute Uncomplicated (without systemic symptoms) or Complicated (systemic symptoms)? @ -Complicated Side effects of treatment? @ -No Exacerbation, Progression, or Severe Exacerbation? @ -No Poses a threat to life or bodily function? How? (Chest pain, USA, PR, pneumonia, PE, COPD, DKA, ARF, appy, cholecystitis, CVA, Diverticulitis, Homicidal, Suicidal, threat to staff... and all critical care pts) @ -No (Mendez Pike) - Lab Data Lab Results 02/25/23 02/25/23 02/25/23 Range/Units 23:05 23:05 23:05 WBC 8.3 (3.8-10.6) k/uL RBC 3.80 (3.80-5.40) m/uL Hgb 13.5 (11.4-16.0) gm/dL Hct 40.9 (34.0-46.0) % MCV 107.6 H (80.0-100.0) fL MCH 35.7 H (25.0-35.0) pg MCHC 33.2 (31.0-37.0) g/dL RDW 12.1 (11.5-15.5) % Plt Count 171 (150-450) k/uL MPV 8.4 Neutrophils % 56 % Lymphocytes % 34 % Monocytes % 7 % Eosinophils % 1 % Basophils % 0 % Neutrophils # 4.7 (1.3-7.7) k/uL Lymphocytes # 2.9 (1.0-4.8) k/uL Monocytes # 0.5 (0-1.0) k/uL Eosinophils # 0.1 (0-0.7) k/uL Basophils # 0.0 (0-0.2) k/uL Macrocytosis Moderate PT 9.9 (9.0-12.0) sec INR 0.9 (<1.2) APTT 22.1 (22.0-30.0) sec Sodium 133 L (137-145) mmol/L Potassium 4.2 (3.5-5.1) mmol/L Chloride 100 (98-107) mmol/L Carbon Dioxide 20 L (22-30) mmol/L Anion Gap 13 mmol/L BUN 12 (7-17) mg/dL Creatinine 0.50 L (0.52-1.04) mg/dL Est GFR (CKD-EPI)AfAm >90 (>60 ml/min/1.73 sqM) Est GFR (CKD-EPI)NonAf >90 (>60 ml/min/1.73 sqM) Glucose 94 (74-99) mg/dL POC Glucose (mg/dL) (70-110) mg/dL POC Glu Telegraph Repeater Technician ID Calcium 8.8 (8.4-10.2) mg/dL Total Bilirubin 0.5 (0.2-1.3) mg/dL AST 43 H (14-36) U/L ALT 25 (4-34) U/L Alkaline Phosphatase 89 (38-126) U/L Total Protein 7.5 (6.3-8.2) g/dL Albumin 4.1 (3.5-5.0) g/dL Urine Opiates Screen (NotDetected) Ur Oxycodone Screen (NotDetected) Urine Methadone Screen (NotDetected) Ur Propoxyphene Screen (NotDetected) Ur Barbiturates Screen (NotDetected) U Tricyclic Antidepress (NotDetected) Ur Phencyclidine Scrn (NotDetected) Ur Amphetamines Screen (NotDetected) U Methamphetamines Scrn (NotDetected) U Benzodiazepines Scrn (NotDetected) Urine Cocaine Screen (NotDetected) U Marijuana (THC) Screen (NotDetected) Serum Alcohol 314 H* mg/dL Blood Type Blood Type Confirm Blood Type Recheck Bld Type Recheck Status Antibody Screen Spec Expiration Date 02/25/23 02/25/23 02/25/23 Range/Units 23:10 23:15 23:46 WBC (3.8-10.6) k/uL RBC (3.80-5.40) m/uL Hgb (11.4-16.0) gm/dL Hct (34.0-46.0) % MCV (80.0-100.0) fL MCH (25.0-35.0) pg MCHC (31.0-37.0) g/dL RDW (11.5-15.5) % Plt Count (150-450) k/uL MPV Neutrophils % % Lymphocytes % % Monocytes % % Eosinophils % % Basophils % % Neutrophils # (1.3-7.7) k/uL Lymphocytes # (1.0-4.8) k/uL Monocytes # (0-1.0) k/uL Eosinophils # (0-0.7) k/uL Basophils # (0-0.2) k/uL Macrocytosis PT (9.0-12.0) sec INR (<1.2) APTT (22.0-30.0) sec Sodium (137-145) mmol/L Potassium (3.5-5.1) mmol/L Chloride (98-107) mmol/L Carbon Dioxide (22-30) mmol/L Anion Gap mmol/L BUN (7-17) mg/dL Creatinine (0.52-1.04) mg/dL Est GFR (CKD-EPI)AfAm (>60 ml/min/1.73 sqM) Est GFR (CKD-EPI)NonAf (>60 ml/min/1.73 sqM) Glucose (74-99) mg/dL POC Glucose (mg/dL) 96 (70-110) mg/dL POC Glu Telegraph Repeater Technician ID Rose Goins Calcium (8.4-10.2) mg/dL Total Bilirubin (0.2-1.3) mg/dL AST (14-36) U/L ALT (4-34) U/L Alkaline Phosphatase (38-126) U/L Total Protein (6.3-8.2) g/dL Albumin (3.5-5.0) g/dL Urine Opiates Screen (NotDetected) Ur Oxycodone Screen (NotDetected) Urine Methadone Screen (NotDetected) Ur Propoxyphene Screen (NotDetected) Ur Barbiturates Screen (NotDetected) U Tricyclic Antidepress (NotDetected) Ur Phencyclidine Scrn (NotDetected) Ur Amphetamines Screen (NotDetected) U Methamphetamines Scrn (NotDetected) U Benzodiazepines Scrn (NotDetected) Urine Cocaine Screen (NotDetected) U Marijuana (THC) Screen (NotDetected) Serum Alcohol mg/dL Blood Type B Negative Blood Type Confirm B Negative Blood Type Recheck No Previous Record Bld Type Recheck Status CABO Indicated Antibody Screen NEGATIVE Spec Expiration Date 02/28/2023 - 230902/26/23 Range/Units 01:19 WBC (3.8-10.6) k/uL RBC (3.80-5.40) m/uL Hgb (11.4-16.0) gm/dL Hct (34.0-46.0) % MCV (80.0-100.0) fL MCH (25.0-35.0) pg MCHC (31.0-37.0) g/dL RDW (11.5-15.5) % Plt Count (150-450) k/uL MPV Neutrophils % % Lymphocytes % % Monocytes % % Eosinophils % % Basophils % % Neutrophils # (1.3-7.7) k/uL Lymphocytes # (1.0-4.8) k/uL Monocytes # (0-1.0) k/uL Eosinophils # (0-0.7) k/uL Basophils # (0-0.2) k/uL Macrocytosis PT (9.0-12.0) sec INR (<1.2) APTT (22.0-30.0) sec Sodium (137-145) mmol/L Potassium (3.5-5.1) mmol/L Chloride (98-107) mmol/L Carbon Dioxide (22-30) mmol/L Anion Gap mmol/L BUN (7-17) mg/dL Creatinine (0.52-1.04) mg/dL Est GFR (CKD-EPI)AfAm (>60 ml/min/1.73 sqM) Est GFR (CKD-EPI)NonAf (>60 ml/min/1.73 sqM) Glucose (74-99) mg/dL POC Glucose (mg/dL) (70-110) mg/dL POC Glu Telegraph Repeater Technician ID Calcium (8.4-10.2) mg/dL Total Bilirubin (0.2-1.3) mg/dL AST (14-36) U/L ALT (4-34) U/L Alkaline Phosphatase (38-126) U/L Total Protein (6.3-8.2) g/dL Albumin (3.5-5.0) g/dL Urine Opiates Screen Detected H (NotDetected) Ur Oxycodone Screen Not Detected (NotDetected) Urine Methadone Screen Not Detected (NotDetected) Ur Propoxyphene Screen Not Detected (NotDetected) Ur Barbiturates Screen Not Detected (NotDetected) U Tricyclic Antidepress Not Detected (NotDetected) Ur Phencyclidine Scrn Not Detected (NotDetected) Ur Amphetamines Screen Not Detected (NotDetected) U Methamphetamines Scrn Not Detected (NotDetected) U Benzodiazepines Scrn Not Detected (NotDetected) Urine Cocaine Screen Not Detected (NotDetected) U Marijuana (THC) Screen Not Detected (NotDetected) Serum Alcohol mg/dL Blood Type Blood Type Confirm Blood Type Recheck Bld Type Recheck Status Antibody Screen Spec Expiration Date - EKG Data EKG Comments: 12-lead Electrocardiogram Interpretation Note EKG was reviewed and interpreted by myself. 12-lead ECG performed at 2255 is interpreted by me as revealing atrial fibrillation at a rate of 109 beats per minute. [place] is normal. QRS duration is 96 seconds, QTC is 394 ms.. There were no ST or T wave abnormalities to suggest myocardial ischemia or injury. R wave progression across the precordium was satisfactory. By my interpretation this EKG is non-diagnostic for acute ischemia. (Mendez Pike) Critical Care Time Critical Care Time: Yes Total Critical Care Time: 36 <Mendez Pike - Last Filed: 02/26/23 06:34> Disposition <Priscilla Thompson - Last Filed: 02/26/23 02:51> Is patient prescribed a controlled substance at d/c from ED?: No Time of Disposition: 02:28 <Mendez Pike - Last Filed: 02/26/23 06:34> Clinical Impression: Fall, Scalp laceration, Alcohol intoxication, Stapled skin wound Disposition: HOME SELF-CARE Condition: Good Instructions (If sedation given, give patient instructions): Fall Prevention for Older Adults (ED), [facility] (ED) Referrals: Kirby Mejia DO [Primary Care Provider] - 1-2 days
[2023-02-26 02:42] VITALS: BP 111/62; PULSE 99
== END 2023-02-26 02:35 | disposition home or self-care (01) ==
LOC: EC 22:51
DX: S01.01XA Laceration without foreign body of scalp, initial encounter (principal); S01.81XA Laceration without foreign body of other part of head, initial encounter; F10.129 Alcohol abuse with intoxication, unspecified; I48.91 Unspecified atrial fibrillation; I10 Essential (primary) hypertension; J45.909 Unspecified asthma, uncomplicated; E07.9 Disorder of thyroid, unspecified; F17.200 Nicotine dependence, unspecified, uncomplicated; Z88.8 Allergy status to other drugs, medicaments and biological substances; Z79.01 Long term (current) use of anticoagulants; Z79.890 Hormone replacement therapy; Z79.899 Other long term (current) drug therapy; Z79.51 Long term (current) use of inhaled steroids; Y90.9 Presence of alcohol in blood, level not specified; W01.0XXA Fall on same level from slipping, tripping and stumbling without subsequent striking against object, initial encounter; Y93.01 Activity, walking, marching and hiking
CPT/HCPCS: 93005; 86900; 86901; 80053; 85025; 85610; 85730; 86850; 72170; 73070; 71045; 72125; 70486; 70450; 99291; 12002; 12011; 96374; 96361; G0480; J2270; 36415; 80306; 80320

== ENCOUNTER → 2023-04-17 | Outpatient (CLI) | payer MEDICARE ==
--- NOTE | 2023-04-18 08:44 | MM ---
Reason for Exam: Screening (asymptomatic). Last mammogram was performed 1 year(s) and 6 month(s) ago. Patient History: Menarche at age 14. First Full-Term at age 26. Postmenopausal. Estrogen for 6 months starting at age 57. Risk Values: Leslie 5 year model risk: 1.5%. NCI Lifetime model risk: 4.5%. Prior Study Comparison: 06/17/2019 Bilateral Screening Mammogram, [facility]. 09/20/2021 Bilateral Screening Mammogram, [facility]. 09/27/2021 Left Diagnostic Mammogram, [facility]. Tissue Density: There are scattered fibroglandular densities. Findings: Analyzed By CAD. There is no suspicious group of microcalcifications or new suspicious mass in either breast. Benign-appearing calcifications bilaterally. Overall Assessment: Benign, BI-RAD 2 Management: Screening Mammogram of both breasts in [address] [facility] will attempt to contact patient to return for supplemental views and ultrasound if indicated. Patient should continue monthly self-breast exams. A clinical breast exam by your physician is recommended on an annual basis. This exam should not preclude additional follow-up of suspicious palpable abnormalities. Note on Elslie scores and lifetime risk: 1. A Leslie score greater than 3% is considered moderate risk. If this is the case, consider specialist referral to assess eligibility for a risk reducing agent. 2. If overall lifetime risk for the development of breast cancer is 20% or higher, the patient may qualify for future screening with alternating mammogram and breast MRI. Electronically signed and approved by: Jd Marvin DO
== END | disposition home or self-care (01) ==
LOC: RADMAMWWP 13:23
PROVIDERS: ATTEND Family Medicine
DX: Z12.31 Encounter for screening mammogram for malignant neoplasm of breast (principal); Z78.0 Asymptomatic menopausal state
CPT/HCPCS: 77063; 77067

== ENCOUNTER → 2024-08-05 | Outpatient (CLI) | payer MEDICARE ==
--- NOTE | 2024-08-06 09:04 | MM ---
Reason for Exam: Screening (asymptomatic). Last mammogram was performed 1 year(s) and 4 month(s) ago. Patient History: Menarche at age 14. First Full-Term at age 26. Postmenopausal. Estrogen for 6 months starting at age 57. Risk Values: Leslie 5 year model risk: 1.6%. NCI Lifetime model risk: 4.1%. Prior Study Comparison: 09/20/2021 Bilateral Screening Mammogram, LOCATED WITHIN [facility]. 09/27/2021 Left Diagnostic Mammogram, LOCATED WITHIN [facility]. 04/17/2023 Bilateral MG 3D screening mammo w/cad, LOCATED WITHIN [facility]. Tissue Density: The breasts are heterogeneously dense, which may obscure small masses. Findings: Analyzed By CAD. There is no suspicious group of microcalcifications or new suspicious mass in either breast. Overall Assessment: Benign, BI-RAD 2 Management: Screening Mammogram of both breasts in 1 year. . Patient should continue monthly self-breast exams. A clinical breast exam by your physician is recommended on an annual basis. This exam should not preclude additional follow-up of suspicious palpable abnormalities. Note on Leslie scores and lifetime risk: 1. A Leslie score greater than 3% is considered moderate risk. If this is the case, consider specialist referral to assess eligibility for a risk reducing agent. 2. If overall lifetime risk for the development of breast cancer is 20% or higher, the patient may qualify for future screening with alternating mammogram and breast MRI. [facility], , 08/06/2024 9:00 AM. Electronically signed and approved by: Victor Manuel Crespo M.D. Radiologis
== END | disposition home or self-care (01) ==
LOC: RADMAMWWP 15:55
PROVIDERS: ATTEND Family Medicine
DX: Z12.31 Encounter for screening mammogram for malignant neoplasm of breast (principal); R92.333 Mammographic heterogeneous density, bilateral breasts; Z78.0 Asymptomatic menopausal state
CPT/HCPCS: 77063; 77067

== ENCOUNTER 2024-09-27 17:41 | Inpatient (IN) | payer MEDICARE ==
--- NOTE | 2024-09-27 18:05 | ED ---
General Adult HPI - General Chief complaint: Fall Stated complaint: L hip pain Time Seen by Provider: 09/27/24 17:46 Source: patient, RN notes reviewed Mode of arrival: ambulatory Limitations: no limitations - History of Present Illness Initial comments: 74-year-old female presents emergency department for evaluation of left hip injury following a fall. Patient reports that she fell out of bed last night. But according the family she had been drinking and she fell onto hardwood floor. Denies head injury, loss of consciousness. She does report that she is on Eliquis. She does report heavy alcohol consumption daily. - Related Data Home Medications Medication Instructions Recorded Confirmed Levothyroxine Sodium [Synthroid] 88 mcg PO DAILY 12/14/14 09/28/24 Montelukast [Singulair] 10 mg PO HS 12/14/14 09/28/24 Albuterol Sulfate [Proair Hfa] 2 puff INHALATION RT-Q4H PRN 03/31/16 09/28/24 Fluticasone Propion/Salmeterol 1 puff INHALATION RT-BID 02/03/20 09/28/24 [Wixela 500-50 Inhub] Rivaroxaban [Xarelto] 20 mg PO HS 02/03/20 09/28/24 lisinopriL [Zestril] 2.5 mg PO BID 07/26/21 09/28/24 Furosemide [Lasix] 20 mg PO DAILY 10/17/21 09/28/24 Alendronate Sodium 70 mg PO FR 09/28/24 09/28/24 Metoprolol Succinate (ER) [Toprol 50 mg PO BID 09/28/24 09/28/24 XL] Previous Rx's Medication Instructions Recorded Acetaminophen-Codeine 300-30mg 1 tab PO Q4H PRN 7 Days #56 tablet 09/30/24 [Tylenol w/codeine #3] Folic Acid 1 mg PO DAILY #30 tab 09/30/24 Thiamine [Vitamin B-1] 100 mg PO DAILY #30 tab 09/30/24 Allergies Allergy/AdvReac Type Severity Reaction Status Date / Time Iodinated Contrast Media Allergy Rash/Hives Verified 09/28/24 13:37 [Iodinated Contrast Media - IV Dye] Review of Systems ROS Statement: Those systems with pertinent positive or pertinent negative responses have been documented in the HPI. ROS Other: All systems not noted in ROS Statement are negative. Past Medical History Past Medical History: Atrial Fibrillation, Asthma, Hypertension, Thyroid Disorder Additional Past Medical History / Comment(s): Seasonal asthma. Hx vertigo. History of Any Multi-Drug Resistant Organisms: None Reported Past Surgical History: Bariatric Surgery, Orthopedic Surgery Additional Past Surgical History / Comment(s): Gastric sleeve 2004, Bakers cyst removed from Rt knee by Dr Reinoso. Rt Knee surg. Rt Shoulder. ORIF Lt Hip. Past Anesthesia/Blood Transfusion Reactions: Previous Problems w/ Anesthesia Additional Past Anesthesia/Blood Transfusion Reaction / Comment(s): Awake during knee surgery. Past Psychological History: No Psychological Hx Reported Smoking Status: Current every day smoker Past Alcohol Use History: Heavy Past Drug Use History: None Reported - Past Family History Father Family Medical History: Deep Vein Thrombosis (DVT) Additional Family Medical History / Comment(s): DVT IN LEG Mother History Unknown: Yes Family Medical History: No Reported History General Exam Limitations: no limitations General appearance: alert, in no apparent distress Head exam: Present: atraumatic, normocephalic, normal inspection Eye exam: Present: normal appearance, PERRL, EOMI. Absent: scleral icterus, conjunctival injection, periorbital swelling Respiratory exam: Present: normal lung sounds bilaterally. Absent: respiratory distress, wheezes, rales, rhonchi, stridor Cardiovascular Exam: Present: regular rate, normal rhythm, normal heart sounds. Absent: systolic murmur, diastolic murmur, rubs, gallop, clicks GI/Abdominal exam: Present: soft, normal bowel sounds. Absent: distended, te nderness, guarding, rebound, rigid Extremities exam: Present: tenderness, normal capillary refill. Absent: full ROM, pedal edema, joint swelling, calf tenderness Back exam: Present: normal inspection Neurological exam: Present: alert, oriented X3 Psychiatric exam: Present: normal affect, normal mood Skin exam: Present: warm, dry, intact, normal color. Absent: rash Course Vital Signs 09/27/24 09/27/24 09/27/24 17:49 20:27 23:06 Temperature 98.2 F Pulse Rate 111 H 80 100 Respiratory 20 18 16 Rate Blood Pressure 194/71 158/67 174/76 O2 Sat by Pulse 97 96 97 Oximetry 09/28/24 09/28/24 09/28/24 03:00 05:00 06:00 Temperature Pulse Rate 85 84 98 Respiratory 16 16 16 Rate Blood Pressure 159/93 140/72 159/90 O2 Sat by Pulse 97 97 96 Oximetry 09/28/24 09/28/24 09/28/24 09:44 14:59 17:10 Temperature 98.1 F 98.1 F 98.6 F Pulse Rate 103 H 104 H 98 Respiratory 18 18 19 Rate Blood Pressure 144/73 170/86 190/81 O2 Sat by Pulse 97 96 95 Oximetry 09/28/24 09/28/24 09/28/24 18:14 18:21 18:56 Temperature Pulse Rate 96 102 H 109 H Respiratory 19 Rate Blood Pressure 129/82 O2 Sat by Pulse 94 L Oximetry 09/28/24 23:10 Temperature 99.0 F Pulse Rate 93 Respiratory 19 Rate Blood Pressure 152/73 O2 Sat by Pulse 94 L Oximetry Medical Decision Making - Medical Decision Making Was pt. sent in by a medical professional or institution (, PA, HORSE RACING MANAGER, urgent care, hospital, or care home...) When possible be specific @ -No Did you speak to anyone other than the patient for history (EMS, parent, family, police, friend...)? What history was obtained from this source @ -No Did you review nursing and triage notes (agree or disagree)? Why? @ -I reviewed and agree with nursing and triage notes Were old charts reviewed (outside hosp., previous admission, EMS record, old EKG, old radiological studies, urgent care reports/EKG's, care home records)? Report findings @ -No old charts were reviewed Differential Diagnosis (chest pain, altered mental status, abdominal pain women, abdominal pain men, vaginal bleeding, weakness, fever, dyspnea, syncope, headache, dizziness, GI bleed, back pain, seizure, CVA, palpatations, mental hea lth, musculoskeletal)? @ -Differential Musculoskeletal Muscular strain, contusion, ligament sprain, fracture, arthritis, septic arthritis, bursitis, cellulitis, muscle spasm, nerve compression, DVT, arterial occlusion, herpes zoster, electrolyte abnormality, tumor.... This is not meant to be in all inclusive list EKG interpreted by me (3pts min.). @ -None X-rays interpreted by me (1pt min.). @ -X-ray of the left hip and pelvis show no evidence of acute fracture or dislocation CT interpreted by me (1pt min.). @ -CT of the pelvis showsMildly displaced fracture of the left superior pubic ramus, mildly displaced comminuted fracture of the left inferior pubic ramus, nondisplaced fracture of the left iliac bone U/S interpreted by me (1pt. min.). @ -None done What testing was considered but not performed or refused? (CT, X-rays, U/S, labs)? Why? @ -None What meds were considered but not given or refused? Why? @ -None Did you discuss the management of the patient with other professionals (professionals i.e. DrSadie, PA, HORSE RACING MANAGER, lab, RT, psych nurse, social sciences lecturer, stone belt sander, teacher, senior major gifts officer, sample case porter)? Give summary @ -Management discussed with Dr. Agosto who is accepting of the admission with medical consultation Management discussed with [facility] Was smoking cessation discussed for >3mins.? @ -No Was critical care preformed (if so, how long)? @ -No Were there social determinants of health that impacted care today? How? (Homelessness, low income, unemployed, alcoholism, drug addiction, transportation, low edu. Level, literacy, decrease access to med. care, skilled nursing, rehab)? @ -No Was there de-escalation of care discussed even if they declined (Discuss DNR or withdrawal of care, Hospice)? DNR status @ -No What co-morbidities impacted this encounter? (DM, HTN, Smoking, COPD, CAD, Cancer, CVA, ARF, Chemo, Hep., AIDS, mental health diagnosis, sleep apnea, morbid obesity)? @ -None Was patient admitted / discharged? Hospital course, mention meds given and route, prescriptions, significant lab abnormalities, going to OR and other pertinent info. @ -[Admitted patient presented the emergency department for evaluation of hip pain following a fall. X-rays obtained revealing no evidence of acute fracture or dislocation. Patient unable to ambulate and therefore a CT was obtained revealing fractures of the superior pubic ramus, inferior pubic ramus, left iliac bone. Case was discussed with orthopedics was accepting of the admission with medical consultation. Case discussed with Dr. Diamond Undiagnosed new problem with uncertain prognosis? @ -No Drug Therapy requiring intensive monitoring for toxicity (Heparin, Nitro, Insulin, Cardizem)? @ -No Were any procedures done? @ -No Diagnosis/symptom? @ -Pelvic fracture Acute, or Chronic, or Acute on Chronic? @ -Acute Uncomplicated (without systemic symptoms) or Complicated (systemic symptoms)? @ -Uncomplicated Side effects of treatment? @ -No Exacerbation, Progression, or Severe Exacerbation? @ -No Poses a threat to life or bodily function? How? (Chest pain, USA, ND, pneumonia, PE, COPD, DKA, ARF, appy, cholecystitis, CVA, Diverticulitis, Homicidal, Suicidal, threat to staff... and all critical care pts) @ -No - Lab Data Result diagrams: 09/27/24 20:38 09/27/24 20:38 Lab Results 09/27/24 09/27/24 Range/Units 20:38 20:38 WBC 14.0 H (3.8-10.6) k/uL RBC 3.58 L (3.80-5.40) m/uL Hgb 12.3 (11.4-16.0) gm/dL Hct 36.4 (34.0-46.0) % MCV 101.6 H (80.0-100.0) fL MCH 34.3 (25.0-35.0) pg MCHC 33.7 (31.0-37.0) g/dL RDW 12.5 (11.5-15.5) % Plt Count 160 (150-450) k/uL MPV 7.4 Neutrophils % 88 % Lymphocytes % 7 % Monocytes % 4 % Eosinophils % 1 % Basophils % 0 % Neutrophils # 12.3 H (1.3-7.7) k/uL Lymphocytes # 0.9 L (1.0-4.8) k/uL Monocytes # 0.5 (0-1.0) k/uL Eosinophils # 0.2 (0-0.7) k/uL Basophils # 0.0 (0-0.2) k/uL Sodium 135 L (137-145) mmol/L Potassium 4.6 (3.5-5.1) mmol/L Chloride 105 (98-107) mmol/L Carbon Dioxide 23 (22-30) mmol/L Anion Gap 7 mmol/L BUN 15 (7-17) mg/dL Creatinine 0.49 L (0.52-1.04) mg/dL Est GFR (CKD-EPI)AfAm >90 (>60 ml/min/1.73 sqM) Est GFR (CKD-EPI)NonAf >90 (>60 ml/min/1.73 sqM) Glucose 108 H (74-99) mg/dL Calcium 9.0 (8.4-10.2) mg/dL Magnesium 1.6 (1.6-2.3) mg/dL Total Bilirubin 1.1 (0.2-1.3) mg/dL AST 32 (14-36) U/L ALT 18 (4-34) U/L Alkaline Phosphatase 53 (38-126) U/L Total Protein 6.7 (6.3-8.2) g/dL Albumin 3.5 (3.5-5.0) g/dL Disposition Clinical Impression: Fall, Pelvic fracture Disposition: ADMITTED IP TO THIS HOSP Condition: Stable Is patient prescribed a controlled substance at d/c from ED?: No
--- NOTE | 2024-09-27 19:18 | XR ---
EXAMINATION TYPE: XR Hip LT and AP Pelvis DATE OF EXAM: 09/27/2024 6:18 PM COMPARISON: Previous radiograph 02/25/2023. CLINICAL INDICATION: Female, 74 years old with history of fall, pain; PHH, pain TECHNIQUE: XR Hip LT and AP Pelvis; hip was examined in the frontal and lateral projections and a AP pelvis. FINDINGS: No acute fracture or dislocation. Previous ORIF and intramedullary becka with gamma nail fixa tion noted in the proximal left femur. Extensive heterotopic ossification noted. Moderate right hip d egenerative arthritis. Moderate left hip degenerative arthropathy is also noted. Pelvic bones appear grossly intact as visualized. Sacroiliac joints appear symmetric. Limited sacral spine degenerative c hanges. IMPRESSION: No acute osseous abnormality. [facility], , 09/27/2024 7:16 PM
[2024-09-27 20:46] LABS: Basophils % (A) 0 %; Eosinophils # (A) 0.2 k/uL (0-0.7); Eosinophils % (A) 1 %; HCT 36.4 % (34.0-46.0); HGB 12.3 gm/dL (11.4-16.0); Lymphocytes # (A) 0.9 k/uL (1.0-4.8); Lymphocytes % (A) 7 %; MCH 34.3 pg (25.0-35.0); MCHC 33.7 g/dL (31.0-37.0); MCV 101.6 fL (80.0-100.0); Mean Platelet Volume 7.4; Monocytes # (A) 0.5 k/uL (0-1.0); Monocytes % (A) 4 %; Neutrophils # (A) 12.3 k/uL (1.3-7.7); Neutrophils % (A) 88 %; Platelet Count 160 k/uL (150-450); RBC 3.58 m/uL (3.80-5.40); RDW 12.5 % (11.5-15.5)
--- NOTE | 2024-09-27 20:54 | CT ---
EXAMINATION TYPE: CT pelvis wo con DATE OF EXAM: 09/27/2024 8:38 PM COMPARISON: Same day radiograph of the left hip. CLINICAL INDICATION: Female, 74 years old with history of fall, lt hip pain; Pt fell out of bed last night. Pt injured her left hip. TECHNIQUE: Axial CT pelvis wo con;Sagittal and coronal reformats were created on a separate workstat ion. CT DLP: 353.7 mGycm, Automated exposure control for dose reduction was used. FINDINGS: Nondisplaced left iliac bone fracture (series 127 image 42). Additional minimally displaced fracture of the left inferior pubic ramus and superior pubic ramus bilateral proximal femurs appear intact. Lumbosacral spine degenerative changes. Partially visualized lower abdomen and pelvis there is no acu te pathology. Colonic diverticulosis without acute diverticulitis. Uterus present. Urinary bladder un remarkable. No periprosthetic lucency involving intramedullary becka with gamma and a fixation in the proximal left femur. Extensive heterotopic ossification. Dense vascular calcifications are noted. Decreased osseou s mineralization. IMPRESSION: 1. Acute mildly displaced fracture of the left superior pubic ramus. 2. Acute mildly displaced comminuted fracture of the left inferior pubic ramus. 3. Nondisplaced fracture of the left iliac bone. [facility], , 09/27/2024 8:52 PM
[2024-09-27 20:56] LABS: ALT 18 U/L (4-34); AST 32 U/L (14-36); African American GFR (CKD) >90 (>60 ml/min/1.73 sqM); Albumin 3.5 g/dL (3.5-5.0); Alkaline Phosphatase 53 U/L (38-126); Anion Gap 7 mmol/L; Blood Urea Nitrogen 15 mg/dL (7-17); Carbon Dioxide 23 mmol/L (22-30); Chloride 105 mmol/L (98-107); Glucose 108 mg/dL (74-99); Magnesium 1.6 mg/dL (1.6-2.3); Non-African American GFR(CKD) >90 (>60 ml/min/1.73 sqM); Potassium 4.6 mmol/L (3.5-5.1); Sodium 135 mmol/L (137-145); Total Bilirubin 1.1 mg/dL (0.2-1.3); Total Protein 6.7 g/dL (6.3-8.2)
[2024-09-27] MEDS ORDERED: NALOXONE 0.4 MG/ML 1 ML VIAL IV PRN (21:34)
[2024-09-27] MEDS ORDERED: MORPHINE SULFATE 4 MG/ML SYRINGE IV PRN (21:34)
[2024-09-27] MEDS ORDERED: LORazepam 0.5 MG TAB PO PRN (21:36)
[2024-09-27] MEDS ORDERED: LORazepam 2 MG/ML INJ IV PRN ×3 (21:36)
[2024-09-27] MEDS ORDERED: LORazepam 1 MG TAB PO PRN ×3 (21:36)
[2024-09-27] MEDS: NICOTINE 14MG/24HR PATCH TRANSDERM STA (22:14)
[2024-09-27] MEDS: Acetaminophen-Codeine 300-30mg TAB PO PRN (23:08)
--- NOTE | 2024-09-28 08:07 | P.CNOR ---
History of Present Illness - HPI History of present illness: The patient is a very pleasant 74-year-old female who is presently in the ER after a ground-level fall resulting in left sided pelvic fractures. The patient states that she fell onto her left side resulting in isolated pain in the left pelvis and low back. She was unable to ambulate and was brought to the ER. In the ER x-rays and CT scan showed pubic rami fractures and a nondisplaced iliac wing fracture. The patient states that she normally ambulates with a walker. She has a history of a left intertrochanteric hip fracture treated by Dr. Rae in 2016 with a short intramedullary hip screw. Past Medical History Past Medical History: Atrial Fibrillation, Asthma, Hypertension, Thyroid Disorder Additional Past Medical History / Comment(s): Seasonal asthma. Hx vertigo. History of Any Multi-Drug Resistant Organisms: None Reported Past Surgical History: Bariatric Surgery, Orthopedic Surgery Additional Past Surgical History / Comment(s): Gastric sleeve 2004, Bakers cyst removed from Rt knee by Dr Reinoso. Rt Knee surg. Rt Shoulder. ORIF Lt Hip. Past Anesthesia/Blood Transfusion Reactions: Previous Problems w/ Anesthesia Additional Past Anesthesia/Blood Transfusion Reaction / Comm: Awake during knee surgery. Past Psychological History: No Psychological Hx Reported Smoking Status: Current every day smoker Past Alcohol Use History: Heavy Past Drug Use History: None Reported - Past Family History Father Family Medical History: Deep Vein Thrombosis (DVT) Additional Family Medical History / Comment(s): DVT IN LEG Mother History Unknown: Yes Family Medical History: No Reported History Medications and Allergies Home Medications Medication Instructions Recorded Confirmed Type Levothyroxine Sodium [Synthroid] 88 mcg PO QAM 12/14/14 11/14/21 History Montelukast [Singulair] 10 mg PO DAILY@199912/14/14 11/14/21 History Albuterol Sulfate [Proair Hfa] 2 puff INHALATION BID PRN 03/31/16 11/14/21 History Acetaminophen [Tylenol] 325 - 650 mg PO Q6H PRN 02/03/20 11/14/21 History Cholecalciferol [Vitamin D3 (25 5,000 unit PO DAILY 02/03/20 11/14/21 History Mcg = 1000 Iu)] Fluticasone Propion/Salmeterol 1 inhalation PO DAILY PRN 02/03/20 11/14/21 H istory [Wixela 500-50 Inhub] Metoprolol Succinate (ER) [Toprol 50 mg PO DAILY 02/03/20 11/14/21 History XL] Rivaroxaban [Xarelto] 20 mg PO HS 02/03/20 11/14/21 History Metoprolol Succinate [Toprol XL] 25 mg PO HS 07/26/21 11/14/21 History lisinopriL [Zestril] 2.5 mg PO DAILY 07/26/21 11/14/21 History Furosemide [Lasix] 20 mg PO DAILY 10/17/21 11/14/21 History HYDROcodone/APAP 5-325MG [[place] 5] 1 each PO Q6HR PRN #28 tab 10/18/21 11/14/21 Rx Allergies Allergy/AdvReac Type Severity Reaction Status Date / Time Iodinated Contrast Media Allergy Rash/Hives Verified 09/27/24 17:52 [Iodinated Contrast Media - IV Dye] Physical Examination The patient is resting comfortably on a hospital gurney. She is alert and able to answer questions. She demonstrates nonlabored breathing with symmetric chest expansion. Her head is normocephalic and atraumatic. Her abdomen is soft and nontender. Upper extremities and right lower extremity are without deformities and are nontender. A focused exam of the left lower extremity was conducted. She has mild pain with passive range of motion of the left hip. There are healed surgical incisions. Her thigh and calf are soft. She is able to actively plantarflex and dorsiflex her ankle and her toes. Results X-rays and CT scan of the pelvis and left hip show a left high root superior pubic rami fracture, a left inferior pubic rami fracture, a minimally displaced iliac wing fracture, and a healed intertrochanteric hip fracture with short intramedullary hip screw. - Labs Labs: Abnormal Lab Results - Last 24 Hours (Table) 09/27/24 09/27/24 Range/Units 20:38 20:38 WBC 14.0 H (3.8-10.6) k/uL RBC 3.58 L (3.80-5.40) m/uL MCV 101.6 H (80.0-100.0) fL Neutrophils # 12.3 H (1.3-7.7) k/uL Lymphocytes # 0.9 L (1.0-4.8) k/uL Sodium 135 L (137-145) mmol/L Creatinine 0.49 L (0.52-1.04) mg/dL Glucose 108 H (74-99) mg/dL H & H 09/27/24 Range/Units 20:38 Hgb 12.3 (11.4-16.0) gm/dL Hct 36.4 (34.0-46.0) % Result Diagrams: 09/27/24 20:38 09/27/24 20:38 Assessment and Plan Assessment: Left high root superior pubic rami fracture, left inferior pubic rami fracture, and nondisplaced iliac wing fracture following ground-level fall History of left intertrochanteric hip fracture in 2016 treated with a short intramedullary hip screw by Dr. Rae Plan: I would recommend nonsurgical treatment of her left-sided pelvic and iliac wing fracture. She can toe-touch weight-bear on the left. She will likely need discharge to rehab and thinks she was discharged to [facility] or [facility] following her left intertrochanteric hip fracture in 2016. Internal medicine has been consulted for perioperative medical management. Time with Patient: Greater than 30
--- NOTE | 2024-09-28 12:49 | P.CONS ---
History of Present Illness - Reason for Consult Consult date: 09/28/24 Medical management - History of Present Illness History of present illness; patient is a 74-year-old lady with past medical history significant for atrial fibrillation, hypertension, hypothyroidism who presented to the ER because of a fall. According to patient she was trying to get out of the bed when she fell on her left side. Patient had been drinking heavily. Patient fell on her left hip. Patient was unable to bear weight on her hip following that. Patient was complaining of severe pain. There was no complaint of any loss of consciousness. There was no visible trauma. Because of the fall, family brought the patient to the hospital Initial lab work done in the ER showed WBC 14, RBC 3.58, hemoglobin 12.3, platelet count 160, sodium 135, potassium 4.6, BUN 15, creatinine 0.49, glucose 108, calcium 9, magnesium 1.6, bilirubin 1.1, X-ray hip and pelvis done showed no acute osseous abnormality CT pelvis done showed acute mildly displaced fracture of the left. Pubic ramus, acute mild displaced comminuted fracture of the left inferior pubic ramus Patient admitted to internal medicine service REVIEW OF SYSTEMS: CONSTITUTIONAL: No fever, no malaise, no fatigue. HEENT: No recent visual problems or hearing problems. Denied any sore throat. CARDIOVASCULAR: No chest pain, orthopnea, PND, no palpitations, no syncope. PULMONARY: No shortness of breath, no cough, no hemoptysis. GASTROINTESTINAL: No diarrhea, no nausea, no vomiting, no abdominal pain. NEUROLOGICAL: No headaches, no weakness, no numbness. HEMATOLOGICAL: Denies any bleeding or petechiae. GENITOURINARY: Denies any burning micturition, frequency, or urgency. MUSCULOSKELETAL/RHEUMATOLOGICAL: As mentioned above ENDOCRINE: Denies any polyuria or polydipsia. The rest of the 14-point review of systems is negative. PHYSICAL EXAMINATION: GENERAL: The patient is alert and oriented x3, not in any acute distress. Well developed, well nourished. HEENT: Pupils are round and equally reacting to light. EOMI. No scleral icterus. No conjunctival pallor. Normocephalic, atraumatic. No pharyngeal erythema. No thyromegaly. CARDIOVASCULAR: S1 and S2 present. No murmurs, rubs, or gallops. PULMONARY: Chest is clear to auscultation, no wheezing or crackles. ABDOMEN: Soft, nontender, nondistended, normoactive bowel sounds. No palpable organomegaly. MUSCULOSKELETAL: No joint swelling or deformity. EXTREMITIES: No cyanosis, clubbing, or pedal edema. NEUROLOGICAL: Gross neurological examination did not reveal any focal deficits. SKIN: No rashes. Assessment and plan Ground-level fall Pelvic fracture involving displaced fracture of superior and inferior left pubic ramus Alcohol abuse Impending alcohol detox Leukocytosis History of hypertension history of COPD History of hypothyroidism History of atrial fibrillation Monitor vital signs Monitor CBC Monitor CMP Continue pain management per orthopedics Continue DVT prophylaxis per orthopedics Ordered CIWA protocol Ordered thiamine and folic acid ordered symptom triggered Ativan therapy Discussed with patient regarding stopping alcohol, patient states she wants to s top drinking at the same time she states that she will continue to drink socially, family states that they have high chance that she will continue to drink. Resume home meds PT and OT consulted Labs and medication were reviewed.. Continue same treatment. Continue with symptomatic treatment. Resume home medication. Monitor labs and vitals. DVT and GI prophylaxis. Further recommendations as per clinical course of the patient Dictation was produced using [employer] dictation software. please excuse any grammatical, word or spelling errors. Past Medical History Past Medical History: Atrial Fibrillation, Asthma, Hypertension, Thyroid Disorder Additional Past Medical History / Comment(s): Seasonal asthma. Hx vertigo. History of Any Multi-Drug Resistant Organisms: None Reported Past Surgical History: Bariatric Surgery, Orthopedic Surgery Additional Past Surgical History / Comment(s): Gastric sleeve 2004, Bakers cyst removed from Rt knee by Dr Reinoso. Rt Knee surg. Rt Shoulder. ORIF Lt Hip. Past Anesthesia/Blood Transfusion Reactions: Previous Problems w/ Anesthesia Additional Past Anesthesia/Blood Transfusion Reaction / Comm: Awake during knee surgery. Past Psychological History: No Psychological Hx Reported Smoking Status: Current every day smoker Past Alcohol Use History: Heavy Past Drug Use History: None Reported - Past Family History Father Family Medical History: Deep Vein Thrombosis (DVT) Additional Family Medical History / Comment(s): DVT IN LEG Mother History Unknown: Yes Family Medical History: No Reported History Medications and Allergies Home Medications Medication Instructions Recorded Confirmed Type Levothyroxine Sodium [Synthroid] 88 mcg PO QAM 12/14/14 11/14/21 History Montelukast [Singulair] 10 mg PO DAILY@199912/14/14 11/14/21 History Albuterol Sulfate [Proair Hfa] 2 puff INHALATION BID PRN 03/31/16 11/14/21 History Acetaminophen [Tylenol] 325 - 650 mg PO Q6H PRN 02/03/20 11/14/21 History Cholecalciferol [Vitamin D3 (25 5,000 unit PO DAILY 02/03/20 11/14/21 History Mcg = 1000 Iu)] Fluticasone Propion/Salmeterol 1 inhalation PO DAILY PRN 02/03/20 11/14/21 History [Wixela 500-50 Inhub] Metoprolol Succinate (ER) [Toprol 50 mg PO DAILY 02/03/20 11/14/21 History XL] Rivaroxaban [Xarelto] 20 mg PO HS 02/03/20 11/14/21 History Metoprolol Succinate [Toprol XL] 25 mg PO HS 07/26/21 11/14/21 History lisinopriL [Zestril] 2.5 mg PO DAILY 07/26/21 11/14/21 History Furosemide [Lasix] 20 mg PO DAILY 10/17/21 11/14/21 History HYDROcodone/APAP 5-325MG [[place] 5] 1 each PO Q6HR PRN #28 tab 10/18/21 11/14/21 Rx Allergies Allergy/AdvReac Type Severity Reaction Status Date / Time Iodinated Contrast Media Allergy Rash/Hives Verified 09/27/24 17:52 [Iodinated Contrast Media - IV Dye] Physical Exam Vitals: Vital Signs Temp Pulse Resp BP Pulse Ox 09/28/24 06:00 98 16 159/90 96 09/28/24 05:00 84 16 140/72 97 09/28/24 03:00 85 16 159/93 97 09/27/24 23:06 100 16 174/76 97 09/27/24 20:27 80 18 158/67 96 09/27/24 17:49 98.2 F 111 H 20 194/71 97 Intake and Output 09/27/24 09/28/24 09/28/24 22:59 06:59 14:59 Other: Weight 64.864 kg Results CBC & Chem 7: 09/27/24 20:38 09/27/24 20:38 Labs: Abnormal Lab Results - Last 24 Hours (Table) 09/27/24 09/27/24 Range/Units 20:38 20:38 WBC 14.0 H (3.8-10.6) k/uL RBC 3.58 L (3.80-5.40) m/uL MCV 101.6 H (80.0-100.0) fL Neutrophils # 12.3 H (1.3-7.7) k/uL Lymphocytes # 0.9 L (1.0-4.8) k/uL Sodium 135 L (137-145) mmol/L Creatinine 0.49 L (0.52-1.04) mg/dL Glucose 108 H (74-99) mg/dL
[2024-09-28] MEDS: MAG HYDROX/AL HYDROX/SIMETH 30 ML CUP PO SCH (13:28)
[2024-09-28] MEDS: IPRATROPIUM-ALBUTEROL 3 ML NEB INHALATION PRN (18:10)
[2024-09-28] MEDS: METOPROLOL SUCCINATE (ER) 50 MG TAB.ER.24H PO STA (18:55)
[2024-09-28] MEDS: MONTELUKAST 10 MG TAB PO SCH (20:56)
[2024-09-28] MEDS: NICOTINE 14MG/24HR PATCH TRANSDERM SCH (23:03)
[2024-09-29] MEDS: IBUPROFEN 400 MG TAB PO PRN (01:22)
[2024-09-29] MEDS: LEVOTHYROXINE 88 MCG TAB PO SCH (06:42)
[2024-09-29] MEDS: FUROSEMIDE 20 MG TAB PO SCH (08:52)
[2024-09-29] MEDS: FOLIC ACID 1 MG TAB PO SCH (08:52)
[2024-09-29] MEDS: METOPROLOL SUCCINATE (ER) 50 MG TAB.ER.24H PO SCH (08:52)
--- NOTE | 2024-09-29 09:03 | P.PN ---
Subjective Progress Note Date: 09/29/24 The patient is a very pleasant 74-year-old female who is presently in the ER after a ground-level fall resulting in left sided pelvic fractures. The patient states that she fell onto her left side resulting in isolated pain in the left pelvis and low back. She was unable to ambulate and was brought to the ER. In the ER x-rays and CT scan showed pubic rami fractures and a nondisplaced iliac wing fracture. The patient states that she normally ambulates with a walker. She has a history of a left intertrochanteric hip fracture treated by Dr. Rae in 2016 with a short intramedullary hip screw. 09/29/2024 progress: No acute events overnight per patient. Patient states she continues to have mild pain. Patient states they have been up to chair yesterday. Patient states they have been following toe-touch weightbearing. Objective - Vital Signs Vital signs: Vital Signs Temp 98.5 F 09/29/24 00:23 Pulse 102 H 09/29/24 01:30 Resp 17 09/29/24 01:30 BP 160/74 09/29/24 00:23 Pulse Ox 94 L 09/29/24 00:23 FiO2 Intake & Output 09/28/24 09/29/24 09/29/24 18:59 06:59 18:59 Output Total 100 Balance -100 Weight 64.864 kg Output: Urine 100 Other: Voiding Method Bedside Commode External Catheter - Exam The patient is resting comfortably in bed. She is alert and able to answer questions. She demonstrates nonlabored breathing with symmetric chest expansion. Her head is normocephalic and atraumatic. Upper extremities and right lower extremity are without deformities and are nontender. A focused exam of the left lower extremity was conducted. She has mild pain with passive range of motion of the left hip. There are healed surgical incisions. Her thigh and calf are soft. She is able to actively plantarflex a nd dorsiflex her ankle and her toes. - Labs CBC & Chem 7: 09/27/24 20:38 09/27/24 20:38 Assessment and Plan Assessment: Left high root superior pubic rami fracture, left inferior pubic rami fracture, and nondisplaced iliac wing fracture following ground-level fall History of left intertrochanteric hip fracture in 2016 treated with a short intramedullary hip screw by Dr. Rae Plan: No acute surgical treatment is recommended at this time. Continue toe-touch weightbearing on the left lower extremity. Plan to transfer to rehab at time of discharge. Appreciate internal medicine for medical management.
[2024-09-29] MEDS: THIAMINE 100 MG TAB PO SCH (09:53)
[2024-09-29] MEDS ORDERED: ALBUTEROL HFA INHALER INHALATION PRN (10:19)
[2024-09-29] MEDS: RIVAROXABAN 20 MG TAB PO SCH (20:46)
[2024-09-29] MEDS ORDERED: MONTELUKAST 10 MG TAB PO SCH (21:00)
[2024-09-29 21:05] VITALS: RESP 18
[2024-09-29] MEDS: SYMBICORT 160-4.5 MCG INHALER INHALATION SCH (22:35)
--- NOTE | 2024-09-30 07:50 | P.PN ---
Subjective Progress Note Date: 09/30/24 The patient is a very pleasant 74-year-old female who is presently in the ER after a ground-level fall resulting in left sided pelvic fractures. The patient states that she fell onto her left side resulting in isolated pain in the left pelvis and low back. She was unable to ambulate and was brought to the ER. In the ER x-rays and CT scan showed pubic rami fractures and a nondisplaced iliac wing fracture. The patient states that she normally ambulates with a walker. She has a history of a left intertrochanteric hip fracture treated by Dr. Rae in 2016 with a short intramedullary hip screw. 09/29/2024 progress: No acute events overnight per patient. Patient states she continues to have mild pain. Patient states they have been up to chair yesterday. Patient states they have been following toe-touch weightbearing. 09/30/2024 progress: No acute events overnight per patient. Patient states her pain has been controlled with oral Tylenol with codeine. Patient has been up to chair. Patient worked with physical therapy and it was determined that patient will need short acute rehab to maintain toe-touch weightbearing restrictions. Objective - Vital Signs Vital signs: Vital Signs Temp 97.9 F 09/30/24 02:03 Pulse 79 09/30/24 02:03 Resp 18 09/30/24 02:03 BP 124/64 09/30/24 02:35 Pulse Ox 84 L 09/30/24 02:35 FiO2 Intake & Output 09/29/24 09/30/24 09/30/24 18:59 06:59 18:59 Output Total 700 Balance -700 Output: Urine 700 Other: Voiding Method Bedside Commode Bedside Commode External Catheter # Voids 1 2 - Exam The patient is resting comfortably in up in a chair. She is alert and able to answer questions. She demonstrates nonlabored breathing with symmetric chest expansion. Her head is normocephalic and atraumatic. Upper extremities and right lower extremity are without deformities and are nontender. A focused exam of the left lower extremity was conducted. She has mild pain with passive range of motion of the left hip. Her thigh and calf are soft. She is able to actively plantarflex and dorsiflex her ankle and her toes. - Labs CBC & Chem 7: 09/27/24 20:38 09/27/24 20:38 Assessment and Plan Assessment: Left high root superior pubic rami fracture, left inferior pubic rami fracture, and nondisplaced iliac wing fracture following ground-level fall History of left intertrochanteric hip fracture in 2016 treated with a short intramedullary hip screw by Dr. Rae Plan: No acute surgical treatment is recommended at this time. Continue toe-touch weightbearing on the left lower extremity. Patient worked with physical therapy and it was determined the patient would need transfer to rehab. Dispo: Plan to transfer to rehab this afternoon or tomorrow. Appreciate internal medicine for medical management.
[2024-09-30 07:57] VITALS: BP 134/75; TEMP 97.5
[2024-09-30] MEDS ORDERED: FUROSEMIDE 20 MG TAB PO SCH (09:00)
[2024-09-30 11:09] VITALS: PULSE 83
--- NOTE | 2024-09-30 12:22 | P.DS ---
Providers Date of admission: 09/27/24 21:37 Attending physician: Adriano Agosto Consults: 09/27/24 21:34 Consult Physician Routine Consulting Provider: Leta Olson Consult Reason/Comments: medical management Do you want consulting provider notified?: Yes Primary care physician: [facility] Course: H&P: The patient is a very pleasant 74-year-old female who is presently in the ER after a ground-level fall resulting in left sided pelvic fractures. The patient states that she fell onto her left side resulting in isolated pain in the left pelvis and low back. She was unable to ambulate and was brought to the ER. In the ER x-rays and CT scan showed pubic rami fractures and a nondisplaced iliac wing fracture. The patient states that she normally ambulates with a walker. She has a history of a left intertrochanteric hip fracture treated by Dr. Rae in 2016 with a short intramedullary hip screw. She had an uncomplicated stay. 09/30/2024 progress: No acute events overnight per patient. Patient states her pain has been controlled with oral Tylenol with codeine. Patient has been up to chair. Patient worked with physical therapy and it was determined that patient will need short acute rehab to maintain toe-touch weightbearing restrictions. Patient was examined this morning. The patient is resting comfortably in up in a chair. She is alert and able to answer questions. She demonstrates nonlabored breathing with symmetric chest expansion. Her head is normocephalic and atraumatic. Upper extremities and right lower extremity are without deformities and are nontender. A focused exam of the left lower extremity was conducted. She has mild pain with passive range of motion of the left hip. Her thigh and calf are soft. She is able to actively plantarflex and dorsiflex her ankle and her toes. Plan: No acute surgical treatment is recommended at this time. Continue toe-touch weightbearing on the left lower extremity. Patient worked with physical therapy and it was determined the patient would need transfer to rehab. Dispo: Plan to transfer to rehab when cleared by medicine. Appreciate internal medicine for medical management. Assessment: Left high root superior pubic rami fracture, left inferior pubic rami fracture, and nondisplaced iliac wing fracture following ground-level fall History of left intertrochanteric hip fracture in 2016 treated with a short intramedullary hip screw by Dr. Rae Patient Condition at Discharge: Stable Plan - Discharge Summary New Discharge Prescriptions: New Acetaminophen-Codeine 300-30mg [Tylenol w/codeine #3] 1 tab PO Q4H PRN 7 Days #56 tablet PRN Reason: Pain No Action Levothyroxine Sodium [Synthroid] 88 mcg PO DAILY Montelukast [Singulair] 10 mg PO HS Albuterol Sulfate [Proair Hfa] 2 puff INHALATION RT-Q4H PRN PRN Reason: Shortness Of Breath Rivaroxaban [Xarelto] 20 mg PO HS Fluticasone Propion/Salmeterol [[place]ixela 500-50 Inhub] 1 puff INHALATION RT-BID Furosemide [Lasix] 20 mg PO DAILY Alendronate Sodium 70 mg PO FR lisinopriL [Zestril] 2.5 mg PO BID Metoprolol Succinate (ER) [Toprol Xl] 50 mg PO BID Discharge Medication List Levothyroxine Sodium [Synthroid] 88 mcg PO DAILY 12/14/14 [History] Montelukast [Singulair] 10 mg PO HS 12/14/14 [History] Albuterol Sulfate [Proair Hfa] 2 puff INHALATION RT-Q4H PRN 03/31/16 [History] Fluticasone Propion/Salmeterol [Wixela 500-50 Inhub] 1 puff INHALATION RT-BID 02/03/20 [History] Rivaroxaban [Xarelto] 20 mg PO HS 02/03/20 [History] lisinopriL [Zestril] 2.5 mg PO BID 07/26/21 [History] Furosemide [Lasix] 20 mg PO DAILY 10/17/21 [History] Alendronate Sodium 70 mg PO FR 09/28/24 [History] Metoprolol Succinate (ER) [Toprol Xl] 50 mg PO BID 09/28/24 [History] Acetaminophen-Codeine 300-30mg [Tylenol w/codeine #3] 1 tab PO Q4H PRN 7 Days #56 tablet 09/30/24 [Rx] Follow up Appointment(s)/Referral(s): Kirby Mejia DO [Primary Care Provider] - 1-2 days Adriano Agosto MD [Medical Doctor] - 2 Weeks Activity/Diet/Wound Care/Special Instructions: Toe-touch weightbearing left lower extremity with walker and assistance. Acetaminophen with codeine for pain control as needed. Discharge Disposition: TRANSFER TO SNF/ECF
--- NOTE | 2024-09-30 13:38 | P.PN ---
Subjective Progress Note Date: 09/29/24 patient is a 74-year-old lady with past medical history significant for atrial fibrillation, hypertension, hypothyroidism who presented to the ER because of a fall. According to patient she was trying to get out of the bed when she fell on her left side. Patient had been drinking heavily. Patient fell on her left hip. Patient was unable to bear weight on her hip following that. Patient was complaining of severe pain. There was no complaint of any loss of consciousness. There was no visible trauma. Because of the fall, family brought the patient to the hospital Initial lab work done in the ER showed WBC 14, RBC 3.58, hemoglobin 12.3, platelet count 160, sodium 135, potassium 4.6, BUN 15, creatinine 0.49, glucose 108, calcium 9, magnesium 1.6, bilirubin 1.1, X-ray hip and pelvis done showed no acute osseous abnormality CT pelvis done showed acute mildly displaced fracture of the left. Pubic ramus, acute mild displaced comminuted fracture of the left inferior pubic ramus Patient admitted to internal medicine service 09/30. Patient seen and examined. Patient resumed back on Xarelto. PT and OT recommend rehab REVIEW OF SYSTEMS: CONSTITUTIONAL: No fever, no malaise,. CARDIOVASCULAR: No chest pain, no palpitations, no syncope. PULMONARY: No shortness of breath, no cough, GASTROINTESTINAL: No diarrhea, no nausea, no vomiting, no abdominal pain. NEUROLOGICAL: No headaches, no weakness, PHYSICAL EXAMINATION: GENERAL: The patient is alert and oriented x3, not in any acute distress. Well developed, well nourished. HEENT: Pupils are round and equally reacting to light. EOMI. No scleral icterus. No conjunctival pallor. Normocephalic, atraumatic. No pharyngeal erythema. No thyromegaly. CARDIOVASCULAR: S1 and S2 present. No murmurs, rubs, or gallops. PULMONARY: Chest is clear to auscultation, no wheezing or crackles. ABDOMEN: Soft, nontender, nondistended, normoactive bowel sounds. No palpable organomegaly. MUSCULOSKELETAL: No joint swelling or deformity. EXTREMITIES: No cyanosis, clubbing, or pedal edema. NEUROLOGICAL: Gross neurological examination did not reveal any focal deficits. SKIN: No rashes. Assessment and plan Ground-level fall Pelvic fracture involving displaced fracture of superior and inferior left pubic ramus Alcohol abuse Impending alcohol detox Leukocytosis History of hypertension history of COPD History of hypothyroidism History of atrial fibrillation Monitor vital signs Monitor CBC Monitor CMP Continue pain management per orthopedics Continue DVT prophylaxis per orthopedics Continue CIWA protocol Continue thiamine and folic acid Continue symptom triggered Ativan therapy Resume Toprol Resume Xarelto Discussed with patient regarding stopping alcohol, patient states she wants to stop drinking at the same time she states that she will continue to drink socially, family states that they have high chance that she will continue to drink. Resume home meds PT and OT consulted Labs and medication were reviewed.. Continue same treatment. Continue with symptomatic treatment. Resume home medication. Monitor labs and vitals. DVT and GI prophylaxis. Further recommendations as per clinical course of the patient Dictation was produced using [employer] dictation software. please excuse any grammatical, word or spelling errors. Objective - Vital Signs Vital signs: Vital Signs Temp 98.4 F 09/29/24 08:12 Pulse 91 09/29/24 08:12 Resp 18 09/29/24 08:12 BP 130/70 09/29/24 08:12 Pulse Ox 93 L 09/29/24 08:12 FiO2 Intake & Output 09/28/24 09/29/24 09/29/24 18:59 06:59 18:59 Output Total 100 Balance -100 Weight 64.864 kg Output: Urine 100 Other: Voiding Method Bedside Commode Bedside Commode External Catheter External Catheter - Labs CBC & Chem 7: 09/27/24 20:38 09/27/24 20:38
--- NOTE | 2024-09-30 13:39 | P.PN ---
Subjective Progress Note Date: 09/30/24 patient is a 74-year-old lady with past medical history significant for atrial fibrillation, hypertension, hypothyroidism who presented to the ER because of a fall. According to patient she was trying to get out of the bed when she fell on her left side. Patient had been drinking heavily. Patient fell on her left hip. Patient was unable to bear weight on her hip following that. Patient was complaining of severe pain. There was no complaint of any loss of consciousness. There was no visible trauma. Because of the fall, family brought the patient to the hospital Initial lab work done in the ER showed WBC 14, RBC 3.58, hemoglobin 12.3, platelet count 160, sodium 135, potassium 4.6, BUN 15, creatinine 0.49, glucose 108, calcium 9, magnesium 1.6, bilirubin 1.1, X-ray hip and pelvis done showed no acute osseous abnormality CT pelvis done showed acute mildly displaced fracture of the left. Pubic ramus, acute mild displaced comminuted fracture of the left inferior pubic ramus Patient admitted to internal medicine service 09/30. Patient seen and examined. No acute issues overnight. Patient is medically cleared for discharge REVIEW OF SYSTEMS: CONSTITUTIONAL: No fever, no malaise,. CARDIOVASCULAR: No chest pain, no palpitations, no syncope. PULMONARY: No shortness of breath, no cough, GASTROINTESTINAL: No diarrhea, no nausea, no vomiting, no abdominal pain. NEUROLOGICAL: No headaches, no weakness, PHYSICAL EXAMINATION: GENERAL: The patient is alert and oriented x3, not in any acute distress. Well developed, well nourished. HEENT: Pupils are round and equally reacting to light. EOMI. No scleral icterus. No conjunctival pallor. Normocephalic, atraumatic. No pharyngeal erythema. No thyromegaly. CARDIOVASCULAR: S1 and S2 present. No murmurs, rubs, or gallops. PULMONARY: Chest is clear to auscultation, no wheezing or crackles. ABDOMEN: Soft, nontender, nondistended, normoactive bowel sounds. No palpable organomegaly. MUSCULOSKELETAL: No joint swelling or deformity. EXTREMITIES: No cyanosis, clubbing, or pedal edema. NEUROLOGICAL: Gross neurological examination did not reveal any focal deficits. SKIN: No rashes. Assessment and plan Ground-level fall Pelvic fracture involving displaced fracture of superior and inferior left pubic ramus Alcohol abuse Impending alcohol detox Leukocytosis History of hypertension history of COPD History of hypothyroidism History of atrial fibrillation Monitor vital signs Monitor CBC Monitor CMP Continue pain management per orthopedics Continue DVT prophylaxis per orthopedics Continue CIWA protocol Continue thiamine and folic acid Continue symptom triggered Ativan therapy Continue Toprol Xarelto Discussed with patient regarding stopping alcohol, patient states she wants to stop drinking at the same time she states that she will continue to drink socially, family states that they have high chance that she will continue to drink. PT and OT recommend rehab Patient is medically stable for discharge Labs and medication were reviewed.. Continue same treatment. Continue with symptomatic treatment. Resume home medication. Monitor labs and vitals. DVT and GI prophylaxis. Further recommendations as per clinical course of the patient Dictation was produced using [employer] dictation software. please excuse any grammatical, word or spelling errors. Objective - Vital Signs Vital signs: Vital Signs Temp 97.5 F L 09/30/24 07:56 Pulse 83 09/30/24 11:05 Resp 18 09/30/24 07:56 BP 134/75 09/30/24 07:56 Pulse Ox 92 L 09/30/24 07:56 FiO2 Intake & Output 09/29/24 09/30/24 09/30/24 18:59 06:59 18:59 Output Total 700 Balance -700 Output: Urine 700 Other: Voiding Method Bedside Commode Bedside Commode External Catheter # Voids 1 2 - Labs CBC & Chem 7: 09/27/24 20:38 09/27/24 20:38
[2024-10-02] MEDS ORDERED: NON FORMULARY DRUG (Alendronate Sodium [Alendronate Sodium] 70 MG Tablet) PO SCH (09:00)
--- NOTE | 2024-10-02 10:19 | CDI ---
Documentation Clarification Form Date: 10/01/2024 03:00:00 PM From: Lillian Gómez RN, CCDS Email: [email or web address] Admit Date: 09/27/2024 09:37:00 PM Patient Name: Christiana Lynch Visit Number: [id number] Discharge Date: 09/30/2024 03:55:00 PM ATTENTION: The Clinical Documentation Specialists (CDI) and [facility] Coding Staff appreciate your assistance in clarifying documentation. Please respond to the clarification below the line at the bottom and electronically sign. The CDI & [facility] Coding staff will review the response and follow-up if needed. Please note: Queries are made part of the Legal Health Record. If you have any questions, please contact the author of this message via ITS. Doctor Ramos Crowley A fracture after a ground level fall is documented in the progress notes. Additional clarification regarding the etiology of the fracture is requested. History/Risk Factors: A fib, HTN, hypothyroid. Presented to the ER because of a fall on her left hip. Admitted with pelvic fracture involving displaced fracture of superior and inferior left pubic ramus. Clinical Indications: 09/27 CT pelvis: Acute mildly displaced fracture of the left superior pubic ramus. Acute mildly displaced comminuted fracture of the left inferior pubic ramus. Nondisplaced fracture of the left iliac bone. 09/28 Ortho consult: "Left high root superior pubic rami fracture, left inferior pubic rami fracture, and nondisplaced iliac wing fracture following ground-level fall. History of left intertrochanteric hip fracture in 2016 treated with a short intramedullary hip screw by Dr. Rae. Recommend nonsurgical treatment." 09/28 IM: "Ground-level fall. Pelvic fracture involving displaced fracture of superior and inferior left pubic ramus." Treatment: PT; toe touch weightbearing LLE; transfer to rehab; Fosamax 70mg po (home med) Please clarify the etiology of the fracture, if known: [x ] Age-related Osteoporosis [ x] Traumatic [ ] Pathological (specify cause): ___ [ ] Other (please specify): [ ] Unable to determine MTDD
== END 2024-09-30 15:55 | DRG 543 ==
LOC: EC 17:41 → 4SSUR 21:37
PROVIDERS: ADMIT Orthopaedic Surgery; ATTEND Orthopaedic Surgery
DX: M80.0B2A Age-related osteoporosis with current pathological fracture, left pelvis, initial encounter for fracture (principal); S32.302A Unspecified fracture of left ilium, initial encounter for closed fracture; D72.829 Elevated white blood cell count, unspecified; S32.592A Other specified fracture of left pubis, initial encounter for closed fracture; J44.89 Other specified chronic obstructive pulmonary disease; F10.10 Alcohol abuse, uncomplicated; E03.9 Hypothyroidism, unspecified; I10 Essential (primary) hypertension; I48.91 Unspecified atrial fibrillation; W06.XXXA Fall from bed, initial encounter; F17.200 Nicotine dependence, unspecified, uncomplicated; Z91.041 Radiographic dye allergy status; Z98.84 Bariatric surgery status; Z79.890 Hormone replacement therapy; Z79.899 Other long term (current) drug therapy; Z79.01 Long term (current) use of anticoagulants; Z87.81 Personal history of (healed) traumatic fracture
CPT/HCPCS: 36415; 72192; 73502; 80053; 83735; 85025; 94640; 99285